=== PATIENT | female | born 1955 | race Caucasian/White ===

== ENCOUNTER → 2016-04-07 | Outpatient (CLI) | payer BC ==
[~2016-04-07] MED LIST: ACET-1138 PO; ACET-24 PO; AMT50 PO; ASPEC81 PO; AZITTAB PO; BUPR-79 PO; CITA20TA9 PO; CLB/200 PO; CLC100 PO; MCRK/10 PO; MCRK20 PO; METRO; METROGEL TOP; ONDA8TAB6 PO; OSTEO BIFLEX; OXYC-57 PO; OXYSR10 PO; PANT40TA PO; RXC5 PO; SENN-61 PO; TRAM-10 PO; TRIA75TA53 PO; [UNRECOGNIZED DRUG - CODE]; [UNRECOGNIZED DRUG - REMARK]
--- NOTE | 2016-04-07 13:33 | DIAGNOSTIC IMAGING REPORT ---
Limited three-phase bone scan BONE SCAN 3 PHASE LIMITED CLINICAL HISTORY: Knee pain TECHNIQUE: This study is acquired in multi phase fashion following the administration of 26.8 mCi technetium 99m MDP. COMPARISON STUDY: None FINDINGS: Vascular flow images demonstrate mild hyperemia to the region of the left knee. No significant increase in activity is seen to the right knee. Planar images show an increase in activity about the left knee and in particular the femoral prosthetic. IMPRESSION: 1. Moderate increase in vascular flow as well as activity to the left knee. 2. This is most prominent in the region of the patient's femoral prosthetic. 3. The possibility of developing loosening must be consideration Electronically signed by: Og Clark M.D. 04/07/2016 1:32 PM Dictated Date/Time: 04/07/2016 1:28 PM
== END | disposition home or self-care (01) ==
LOC: C.NUCL 08:50
PROVIDERS: ATTEND Orthopaedic Surgery
DX: M25.561 Pain in right knee (principal); R93.7 Abnormal findings on diagnostic imaging of other parts of musculoskeletal system

== ENCOUNTER → 2016-05-05 | Outpatient (CLI) | payer BC ==
[~2016-05-05] VITALS: Ht 185.4 cm; Wt 120.1 kg
[2016-05-05 08:52] VITALS: Ht 185.4 cm; Wt 120.1 kg
--- NOTE | 2016-05-05 09:23 | PAT Medication Instructions ---
Service Date May 05, 2016. Current Home Medication List Amitriptyline Hcl (Elavil), 50 MG PO HS Bupropion (Wellbutrin Sr), 150 MG PO HS Celecoxib (CeleBREX), 200 MG PO QAM Citalopram Hydrobromide (Celexa), Unknown Dose PO HS Pantoprazole (Protonix), 40 MG PO QAM Tramadol (Ultram), 1-2 TAB PO Q6 PRN for Pain Triamterene/Hctz (Maxzide 75MG/50MG), 1 TAB PO QAM [Metrogel], 1 DOSE TOP UD PRN for FACE Medication Instructions For Your Scheduled Surgery Celecoxib (CeleBREX), 200 MG PO QAM (per surgeon for instructions) - Hold the following medications 24 hours prior to surgery: [Metrogel], 1 DOSE TOP UD PRN for FACE - Hold the following medications the morning of surgery: Triamterene/Hctz (Maxzide 75MG/50MG), 1 TAB PO QAM - Take the following medications the morning of surgery with a sip of water: Pantoprazole (Protonix), 40 MG PO QAM Tramadol (Ultram), 1-2 TAB PO Q6 PRN for Pain (okay to take up to 4 hours prior to surgery if needed) - Take the following medications as scheduled the night before surgery: Citalopram Hydrobromide (Celexa), Unknown Dose PO HS Amitriptyline Hcl (Elavil), 50 MG PO HS Bupropion (Wellbutrin Sr), 150 MG PO HS If you have any questions please call us at [phone] (Carolann Ascencio PA-C) or [phone] or [phone]
[2016-05-05 09:50] LABS: BASO % 0.1 %; BASO ABS # 0.01 K/uL (0-0.2); COMPLETE YES; EOS % 0.9 %; HEMATOCRIT 38.5 % (37-47); IG% 0.3 %; LYMPH % 18.2 %; LYMPH ABS # 2.03 K/uL (1.2-3.4); MEAN CORPUSCULAR HEMOGLOBIN 30.1 pg (25-34); MEAN CORPUSCULAR HGB CONC 33.5 g/dl (32-36); MEAN PLATELET VOLUME 8.8 fL (7.4-10.4); MONO % 9.1 %; NEUT % 71.4 %; PLATELET COUNT 413 K/uL (130-400); RED BLOOD COUNT 4.28 M/uL (4.2-5.4); WHITE BLOOD COUNT 11.15 K/uL (4.8-10.8)
[2016-05-05 09:59] LABS: PARTIAL THROMBOPLASTIN RATIO 1.1; PROTHROMBIN TIME (PATIENT) 11.2 SECONDS (9.0-12.0)
[2016-05-05 10:00] LABS: URINE APPEARANCE CLEAR (CLEAR); URINE BILIRUBIN NEG (NEG); URINE COLOR YELLOW; URINE EPITHELIAL CELL AUTO >30 /lpf (0-5); URINE NITRITE NEG (NEG); URINE PH 6.5 (4.5-7.5); URINE SPECIFIC GRAVITY 1.015 (1.000-1.030); UROBILINOGEN NEG (NEG); ZZUR CULT IF INDIC CLEAN CATCH NO
[2016-05-05 10:05] LABS: MANUAL MICROSCOPIC REQUIRED? NO; REVIEW REQ? NO
--- NOTE | 2016-05-05 10:06 | DIAGNOSTIC IMAGING REPORT ---
CHEST PREADMISSION(PA/LAT) CLINICAL HISTORY: Preoperative chest COMPARISON STUDY: No previous studies for comparison. FINDINGS: The cardiac and mediastinal contours are normal. There is no evidence of focal pulmonary consolidation. There is no evidence of failure. No pleural effusions are visualized.[ IMPRESSION: No active disease in the chest. Electronically signed by: Jesus Ruby M.D. 05/05/2016 10:05 AM Dictated Date/Time: 05/05/2016 10:05 AM
[2016-05-05 10:07] LABS: ESTIMATED AVERAGE GLUCOSE 137 mg/dl; HA1C FLAG Normal (Normal)
[2016-05-05 10:14] LABS: BUN/CREATININE RATIO 13.5 (10-20); CALCIUM 9.4 mg/dl (8.5-10.1); CREATININE 1.8 mg/dl (0.60-1.20); POTASSIUM 3.2 mmol/L (3.5-5.1)
== END | disposition home or self-care (01) ==
LOC: C.LAB 08:00 → EDSTATUS 05-31 10:30
PROVIDERS: ATTEND Orthopaedic Surgery
DX: Z01.810 Encounter for preprocedural cardiovascular examination (principal); Z01.811 Encounter for preprocedural respiratory examination; Z01.812 Encounter for preprocedural laboratory examination

== ENCOUNTER → 2016-07-06 | Outpatient (CLI) | payer BC ==
[~2016-07-06] MED LIST changes: -AZITTAB PO; -METRO; -OSTEO BIFLEX; -[UNRECOGNIZED DRUG - CODE]
[2016-07-06 15:49] LABS: PARTIAL THROMBOPLASTIN RATIO 1.2; PROTHROMBIN TIME (PATIENT) 10.9 SECONDS (9.0-12.0)
[2016-07-06 16:05] LABS: BLOOD UREA NITROGEN 15 mg/dl (7-18)
[2016-07-06 17:05] LABS: URINE APPEARANCE TURBID (CLEAR); URINE BILIRUBIN NEG (NEG); URINE COLOR YELLOW; URINE EPITHELIAL CELL AUTO >30 /lpf (0-5); URINE NITRITE NEG (NEG); URINE SPECIFIC GRAVITY 1.018 (1.000-1.030); UROBILINOGEN NEG (NEG)
[2016-07-06 17:09] LABS: MANUAL MICROSCOPIC REQUIRED? NO; REVIEW REQ? NO
[2016-07-07 06:19] LABS: ESTIMATED AVERAGE GLUCOSE 126 mg/dl; HA1C FLAG Normal (Normal)
== END | disposition home or self-care (01) ==
LOC: C.LAB 15:07
PROVIDERS: ATTEND Orthopaedic Surgery
DX: M17.10 Unilateral primary osteoarthritis, unspecified knee (principal)

== ENCOUNTER 2016-07-13 10:41 | Inpatient (IN) | payer BC ==
--- NOTE | 2016-07-08 19:06 | HISTORY & PHYSICAL EXAMINATION ---
DATE OF ADMISSION: 07/13/2016 PROCEDURE: Left knee arthrotomy, possible poly exchange versus antibiotic spacer. HISTORY OF PRESENT ILLNESS: Geraldine is a pleasant 61-year-old female who presented for preop evaluation prior to above-mentioned procedure. The patient initially had bilateral knee replacements performed in 04/16/2007 and had an uneventful postoperative course. She followed up earlier this year after having increased pain and swelling in her knee without any known injuries or trauma. Of note, she did develop an infection in her right foot third toe, which has been treated by Dr. Long. At this point in time, Dr. Long did perform a right third toe partial amputation as well as manipulation under anesthesia of her other toes. The infection is now cleared, she underwent Synovasure testing of her left knee which showed positive alpha defensins, the total nucleated cell count was 68,563, and neutrophils were 94.9. She also underwent a bone scan which showed moderate increased vascular flow as well activity to the left knee, this is most prominent in the region of the patient's femoral prosthetic, the possibility of developing loosening is to be considered. At this point in time, after discussing further care, will proceed with a left knee arthrotomy, possible poly exchange, possible antibiotic spacer. PAST MEDICAL HISTORY: 1. Hypertension. 2. Sleep apnea. 3. Anxiety. 4. Acid reflux. 5. Obesity. ALLERGIES: 1. LATEX CAUSES A SKIN RASH. 2. SULFA CAUSES A RASH. PAST SURGICAL HISTORY: 1. Bilateral knee replacements, as mentioned above. 2. Appendectomy. 3. Cholecystectomy. 4. Hysterectomy. 5. Previous knee arthroscopies. 6. Open reduction internal fixation, right wrist. 7. Right foot third toe partial amputation. MEDICATIONS: 1. Amitriptyline 50 mg 1 tablet at bedtime. 2. Wellbutrin 150 mg daily. 3. Protonix 40 mg daily. 4. MetroGel 1%. 5. Celexa 20 mg daily. 6. Aspirin 81 mg daily. FAMILY HISTORY: Noncontributory. REVIEW OF SYSTEMS: Otherwise negative. Please see HPI for pertinent positives. PHYSICAL EXAMINATION: GENERAL: Sona 61-year-old female in no acute distress, alert and oriented x3. She weighs 258 pounds, her BMI is 34. HEENT: Normocephalic, atraumatic. CARDIAC: Regular rate and rhythm. No murmurs or gallops appreciated. Resting pulse 80 beats per minute. LUNGS: Clear to auscultation without rales or wheeze bilaterally. ABDOMEN: Soft, nontender. Bowel sounds present. EXTREMITIES: Left lower extremity is neurovascularly intact. Calves are soft and nontender. DP pulse +2. Has well-healed surgical incision. She has mild effusion noted. No erythema or warmth. She has diffuse tenderness to the knee which is greatest over the medial compartment. Range of motion is 0/3/120. IMAGING DATA: Plain film x-rays of her left knee shows status post left total knee replacement, mild lateral patellar tilt. Otherwise, no obvious loosening or acute bony pathology on plain films. Bone scan from 04/07/2016 showing moderate increased vascular flow to the left knee, most prominent around the femoral prosthetic. Synovasure results as mentioned in the HPI. LABORATORY DATA: Her white cell count was 11.15. Hemoglobin A1c was 6.4. Sed rate 80. IMPRESSION: 1. Painful left total knee replacement with possible loosening of femoral component, possibility of infection. 2. Past medical history as outlined above. PLAN: Further care discussed with the Geraldine, now the infection is cleared in her foot and is now status post partial amputation, will proceed with left knee arthrotomy, possible poly exchange versus revision versus antibiotic spacer, pending intraoperative findings. Will likely be discharged home with home health therapy, may also require IV antibiotics pending findings. The patient understands all the risks and benefits of the procedure and would like to proceed, as mentioned.
[~2016-07-13] VITALS: Ht 185.4 cm; Wt 115.0 kg
[2016-07-13] VITALS (10 sets, daily range): BP systolic 138–171; BP diastolic 77–97; PULSE 75–93; TEMP 36.3–37.2; O2SAT 93–100; Ht 185.4 cm; Wt 115.0 kg
--- NOTE | 2016-07-13 09:47 | History & Physical Bridge Note ---
H&P Re-Evaluation Bridge Note: I have examined the patient, reviewed the History & Physical and in the interval since the performance of the History & Physical I have noted the following changes of clinical significance: No changes noted
[~2016-07-13 10:41] MED LIST changes: -ACET-1138 PO; -ACET-24 PO; -ASPEC81 PO; +BUPIVACAINE 0.25% 30 ML VIAL ONE; +BUPIVACAINE 0.5 % 5 MG/1 ML PF 10ML VIAL ONE; +CEFAZOLIN 3000 MG/65 ML D5W 65 ML IV SCH; -CLC100 PO; +LACTATED RINGER'S 1000ML 1,000 ML IV SCH; -MCRK/10 PO; -MCRK20 PO; +MIDAZOLAM HCL 1 MG/ML 2ML VIAL ONE; -ONDA8TAB6 PO; -OXYC-57 PO; -OXYSR10 PO; +PATIENT'S HEIGHT AND/OR WEIGHT NEEDED SCH; -RXC5 PO; -SENN-61 PO; -[UNRECOGNIZED DRUG - REMARK]
[2016-07-13] MEDS ORDERED: OXYC-57 PO (11:22)
[2016-07-13] MEDS ORDERED: SENN-61 PO (11:22)
[2016-07-13] MEDS ORDERED: LACTATED RINGER'S 1000ML 1,000 ML IV PRN (11:44)
[2016-07-13] MEDS ORDERED: ONDANSETRON INJ 2 MG/ML 2 ML VIAL IV PRN ×2 (11:45→14:15)
[2016-07-13] MEDS ORDERED: FENTANYL CITRATE INJ 50 MCG/1 ML 2 ML VIAL IV PRN (11:45)
[2016-07-13] MEDS ORDERED: ORTHO JOINT ANESTHETIC ONE (11:47)
[2016-07-13] MEDS ORDERED: POVIDONE-IODINE OP SOLN 30 ML BTL ONE (11:48)
[2016-07-13] MEDS ORDERED: BACITRACIN 50000 UNIT VIAL ONE ×3 (11:48→13:06)
[2016-07-13] MEDS ORDERED: VANCOMYCIN HCL 1000MG/20ML VIAL ONE (11:48)
[2016-07-13] MEDS ORDERED: PROPOFOL IV EMULSION 10 MG/ML 20 ML VIAL IV ONE ×3 (12:19→13:11)
[2016-07-13] MEDS ORDERED: LIDOCAINE HCL 2% 2 ML VIAL (20MG/ML) ONE (12:19)
[2016-07-13] MEDS ORDERED: SODIUM CHLORIDE 0.9% INJ 10 ML VIAL ONE (12:43)
[2016-07-13] MEDS ORDERED: KETAMINE HCL INJ 50 MG/ML 10 ML VIAL ONE (12:43)
--- NOTE | 2016-07-13 13:34 | [facility] Post Operative Brief Note ---
Immediate Operative Summary Operative Date July 13, 2016. Pre-Operative Diagnosis Infected Left Knee Post-Operative Diagnosis Infected Left Knee Procedure(s) Performed Removal of Hardware Left Knee and Replacement with Articulated Antibiotic Spacer Left Knee Surgeon Dr. Austin Yi Art Editor Surgeon(s) Og Reed PA-c Estimated Blood Loss 10 ml Findings infected loose tka lt knee intra op frozen section greater than 15 wbc per hpf Specimens Permanent Specimen A: Explanted Hardware Left Knee Microbiology #1 Left knee fluid, Stat gram stain, routine culture and senitivity, anaerobic and aerobic Frozen section #1 femur left knee bone cement interface WBC per high power field #2 Left tibia bone cement interface WBC per high power field Frozen sent at 1255, and Dr. Cantor returned call at 1324 Dr. Yi given results with no new orders Complication(s) None Disposition Recovery Room / PACU
--- NOTE | 2016-07-13 13:58 | OPERATIVE REPORT ---
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 PROCEDURE: Arthrotomy with removal of infected components, debridement, lavage. SURGEON: Dr. Yi. FINDINGS: Intraoperative frozen section revealed greater than 15 neutrophils per high power field on the tibial femoral specimens at the interface of the bone and the implant. There was also intraoperative cultures were taken as well as stat Gram stain. Stat gram stain revealed there to be no evidence of organisms but was clearly consistent with a loosened component. The patellar component was free floating within the knee joint. The femoral component was loosened and essentially fell off. The tibial component was also loose. The patient had the knee implant placed in 2007, was uncomplicated until February when she developed an infection in her right foot, subsequently developed pain in her left knee and presented with a hot swollen left knee. An office aspiration with Synovasure revealed there to be evidence of fluid consistent with infection. The patient was scheduled for surgical debridement, lavage, removal of implants. Bone scan was also consistent with that of a hot femoral component with increased uptake around the femoral component primarily. OPERATION AND FINDINGS: PROCEDURE: After proper prepping and draping of the left lower extremity, an anterior incision made over the region of the left anterior knee. A medial parapatellar incision was made. The patellar component was noted to be free floating within the joint, it was removed. The femoral component was loose, it was removed. The tibial poly was removed. The tibial component took minimal effort for removal. There was clear evidence of gross visual signs of infection with hypertrophic synovium and synovectomy was performed. The wound was also cleaned with a Versajet as well as 9 liters of sterile saline with bacitracin. Having performed a thorough irrigation and debridement lavage of all components after using Versajet on soft tissue and synovium an articulated antibiotic spacer was placed. Three packets of cement, 3 grams of vancomycin were added per packet. The femoral articulated component was loosely cemented as was a patellar component with the pegs removed was cemented and a tibial 9 mm tibial tray was also placed with antibiotic spacer into the proximal tibia. The wound was irrigated again with 3 liters of bacitracin impregnated sterile saline solution. After thorough irrigation and debridement lavage the medial parapatellar retinaculum was closed with #1 Vicryl, subQ was closed with 2-0 Vicryl, skin was closed with skin clips. A medium bore Hemovac was placed in the deep wound. The patient was taken to recovery room in stable condition. Estimated blood loss 10 mL. Tourniquet time 1 hour and 15 minutes. Complications none. I attest to the content of the Intraoperative Record and any orders documented therein. Any exceptio ns are noted below.
[2016-07-13] MEDS ORDERED: ZOLPIDEM TARTRATE 5 MG TAB PO PRN (14:15)
[2016-07-13] MEDS ORDERED: MAGNESIUM HYDROXIDE SUSP 30 ML UDC PO PRN (14:15)
[2016-07-13] MEDS ORDERED: VANCOMYCIN INJ 1,000 MG in SODIUM CHLORIDE 0.9% 250ML 250 ML IV SCH ×2 (14:15→21:00)
[2016-07-13] MEDS ORDERED: MoRPHine SULFATE 2 MG/ML CARP IV PRN (14:15)
[2016-07-13] MEDS ORDERED: BISACODYL 10 MG SUPP PR PRN (14:15)
[2016-07-13] MEDS ORDERED: SOD PHOSPHATE/SOD BIPHOSPHATE ENEMA 132 ML BTL PR PRN (14:15)
--- NOTE | 2016-07-13 14:47 | DIAGNOSTIC IMAGING REPORT ---
TWO VIEWS LEFT KNEE CLINICAL HISTORY: Postoperative examination. Left knee infection. FINDINGS: AP and crosstable lateral portable views of the left knee are obtained. No prior studies are available for comparison at the time of dictation. The skeletal structures are osteopenic. The femoral component of the left knee arthroplasty is in near-anatomic alignment. The tibial component appears to have been removed. There has been undersurface remodeling of the patella. No acute fracture is seen. There are expected postoperative changes around the knee including skin clips, a surgical drain, soft tissue edema, and subcutaneous gas. IMPRESSION: Postoperative findings as above. The tibial component of the arthroplasty has likely been removed. No acute fracture is seen. Clinical correlation will be required. Electronically signed by: Larry Wang M.D. 07/13/2016 2:46 PM Dictated Date/Time: 07/13/2016 2:44 PM
--- NOTE | 2016-07-13 14:51 | Anesthesiology Progress Note ---
Anesthesia Post Op Note Date & Time July 13, 2016 at 14:51 Vital Signs Pain Intensity: 0 Vital Signs Past 12 Hours Date Time Temp Pulse Resp B/P Pulse Ox O2 Delivery O2 Flow Rate FiO2 07/13/16 14:34 36.8 07/13/16 14:32 134/77 07/13/16 14:30 72 14 94 07/13/16 14:30 74 14 07/13/16 14:27 160/63 07/13/16 14:25 73 16 07/13/16 14:25 73 16 97 07/13/16 14:22 149/71 07/13/16 14:20 73 16 156/67 98 07/13/16 14:20 73 07/13/16 14:05 37.1 84 14 147/84 99 Nasal Cannula 3 07/13/16 11:23 36.9 93 18 141/97 95 Room Air Notes Mental Status: alert / awake / arousable, participated in evaluation Pt Amnestic to Procedure: Yes Nausea / Vomiting: adequately controlled Pain: adequately controlled Airway Patency, RR, SpO2: stable & adequate BP & HR: stable & adequate Hydration State: stable & adequate Neuraxial Anesthesia: was administered, sensory block is resolving Anesthetic Complications: no major complications apparent
[2016-07-13] MEDS ORDERED: MoRPHine SULFATE 10 MG/ML CARP/VIAL IV PRN (16:00)
[2016-07-13] MEDS ORDERED: MoRPHine SULFATE 4 MG/ML 1 ML CARP\\VIAL IV PRN (16:00)
[2016-07-13] MEDS ORDERED: VANCOMYCIN INJ 2,750 MG in SODIUM CHLORIDE 0.9% 500ML 500 ML IV ONE (16:30)
--- NOTE | 2016-07-13 16:34 | Medical Consult ---
Consultation Date of Consultation: July 13, 2016. Attending Physician: Austin Yi D.O. Reason for Consultation: infected left TKA History of Present Illness 61-year-old female with history of left TKA in 2007, who did well until earlier this year, when while being treated for an infection of her right 3rd toe requiring partial amputation, she noted progressive worsening of aching pain in her left knee long with swelling. She eventually had aspiration of the joint with fluid showing evidence of infection. She has now been admitted to the hospital and undergone removal of the prosthesis and placement of an antibiotic spacer. Gram stain of the fluid showed only polys, no organisms, cultures are pending. She has been started empirically on IV vancomycin. She denies any significant fever or chills. She is tolerating her antibiotic thus far. Past Medical/Surgical History Medical Problems: (1) Infection of total knee replacement PAST MEDICAL HISTORY: 1. Hypertension. 2. Sleep apnea. 3. Anxiety. 4. Acid reflux. 5. Obesity. PAST SURGICAL HISTORY: Knee replacement, cholecystectomy, hysterectomy, wrist surgery, toe amputation Family History Noncontributory Social History Smoking Status: Never Smoker Allergies Coded Allergies: Latex1 -Allergic Contact Dermititis (Verified Allergy, Mild, RASH, 07/13/16 ) Sulfa Antibiotics (Verified Allergy, Mild, rash, 07/13/16) Bacitracin (Verified Allergy, Unknown, per PCP note , 07/13/16) Flu Virus Vaccine (Verified Allergy, Unknown, per PCP note , 07/13/16) Metronidazole (Verified Allergy, Unknown, per PCP note , 07/13/16) Minocycline (Verified Allergy, Unknown, per PCP note , 07/13/16) Neomycin (Verified Allergy, Unknown, per PCP note , 07/13/16) Polymyxin B (Verified Allergy, Unknown, per PCP note , 07/13/16) Terconazole (Verified Allergy, Unknown, per PCP note , 07/13/16) Current Inpatient Medications Current Inpatient Medications Medications (Trade) Dose Ordered Sig/Fredrick Route Start Time Stop Time Status Last Admin Dose Admin Lactated Ringer's 1,000 ml @ 15 mls/hr Q24H IV 07/13/16 06:00 07/14/16 05:59 07/13/16 11:34 15 MLS/HR Cefazolin Sodium (Ancef 3000 Mg/ 65 ml D5W) 65 ml @ 100 mls/hr PREOP IV 07/13/16 06:00 07/13/16 18:00 07/13/16 12:18 100 MLS/HR Fentanyl Citrate (Fentanyl Inj) 25 mcg Q5M PRN IV 07/13/16 11:45 07/13/16 16:45 Ondansetron HCl 4 mg 4 mg ONE PRN IV 07/13/16 11:45 07/13/16 16:45 Lactated Ringer's 1,000 ml @ 150 mls/hr Q6H40M PRN IV 07/13/16 11:44 07/13/16 16:45 Potassium Chloride/Dextrose/ Sod Cl (D5W And 1/2nss + 20meq KCl) 1,000 ml @ 100 mls/hr Q10H IV 07/13/16 16:00 07/14/16 14:08 Celecoxib (CeleBREX CAP) 200 mg BID PO 07/13/16 21:00 08/12/16 20:59 Oxycodone HCl (Roxicodone Immediate Rel Tab) 1 TABLET FOR PAIN RATING... Q4H PRN PO 07/13/16 14:15 07/27/16 14:14 Oxycodone HCl (Oxycontin Tab) 10 mg Q12 PO 07/13/16 21:00 07/27/16 20:59 Acetaminophen (Tylenol Tab) 1,000 mg Q8H PO 07/13/16 22:00 08/12/16 21:59 Magnesium Hydroxide (Milk Of Magnesia Susp) 30 ml Q6H PRN PO 07/13/16 14:15 08/12/16 14:14 Bisacodyl (Dulcolax Supp) 10 mg DAILY PRN RI 07/13/16 14:15 08/12/16 14:14 Sodium Biphosphate/ Sodium Phosphate (Fleet Enema) 132 ml DAILY PRN RI 07/13/16 14:15 08/12/16 14:14 Senna (Senokot Tab) 17.2 mg HS PO 07/13/16 21:00 08/12/16 20:59 Docusate Sodium (coLACE CAP) 100 mg BID PO 07/13/16 21:00 08/12/16 20:59 Diphenhydramine HCl (Benadryl Cap) 25 mg Q8H PRN PO 07/13/16 14:15 08/12/16 14:14 Zolpidem Tartrate (Ambien Tab) 5 mg HSZ PRN PO 07/13/16 14:15 08/12/16 14:14 Multivitamins (Multivitamin Tab) 1 tab QAM PO 07/14/16 09:00 08/13/16 08:59 Ondansetron HCl (Zofran Inj) 4 mg Q6H PRN IV 07/13/16 14:15 08/12/16 14:14 Aspirin (Ecotrin Tab) 81 mg BID PO 07/13/16 21:00 08/12/16 20:59 Amitriptyline HCl (Elavil Tab) 50 mg HS PO 07/13/16 21:00 08/12/16 20:59 Bupropion HCl (Wellbutrin-Sr Tab) 150 mg HS PO 07/13/16 21:00 08/12/16 20:59 Metronidazole HCl (Metrogel Topical Gel) 1 appln UD TOP 07/13/16 21:00 07/23/16 20:59 Morphine Sulfate 2 mg 2 mg Q4HWA PRN IV 07/13/16 14:15 07/27/16 14:14 Vancomycin HCl/ Sodium Chloride (Vancomycin Inj/ Nss 250ml) 270 ml @ 125 mls/hr Q12 IV 07/13/16 21:00 08/24/16 20:59 UNV Morphine Sulfate (MoRPHine SULFATE INJ) 4 mg Q4HWA PRN IV 07/13/16 16:00 07/27/16 15:59 Morphine Sulfate 6 mg 6 mg Q4HWA PRN IV 07/13/16 16:00 07/27/16 15:59 Vancomycin HCl/ Sodium Chloride (Vancomycin Inj/ Nss 500ml) 555 ml @ 200 mls/hr TODAY@1630 ONCE IV 07/13/16 16:30 07/13/16 19:16 Review of Systems All systems were reviewed and are negative except as per HPI Physical Exam Date Time Temp Pulse Resp B/P Pulse Ox O2 Delivery O2 Flow Rate FiO2 07/13/16 16:24 36.8 81 17 146/86 100 Nasal Cannula 2.0 07/13/16 15:54 36.8 75 16 158/77 99 Nasal Cannula 2.0 07/13/16 15:48 99 Nasal Cannula 2.0 07/13/16 15:28 99 Nasal Cannula 2.0 07/13/16 15:24 36.8 86 15 157/86 99 2.0 07/13/16 15:17 149/70 07/13/16 15:15 77 14 97 07/13/16 15:15 76 14 07/13/16 15:12 154/80 07/13/16 15:10 75 14 07/13/16 15:10 75 14 98 07/13/16 15:07 155/74 07/13/16 15:05 73 14 96 07/13/16 15:05 73 14 07/13/16 15:02 143/80 07/13/16 15:00 73 16 98 07/13/16 15:00 74 16 07/13/16 14:57 156/69 07/13/16 14:55 73 21 07/13/16 14:55 73 21 98 07/13/16 14:52 161/68 07/13/16 14:50 73 22 07/13/16 14:50 74 22 96 07/13/16 14:47 143/68 07/13/16 14:45 73 19 98 07/13/16 14:45 74 19 07/13/16 14:42 158/84 07/13/16 14:40 74 21 97 07/13/16 14:40 74 21 07/13/16 14:37 150/72 07/13/16 14:35 74 18 07/13/16 14:35 74 18 99 07/13/16 14:34 36.8 07/13/16 14:32 134/77 07/13/16 14:30 72 14 94 07/13/16 14:30 74 14 07/13/16 14:27 160/63 07/13/16 14:25 73 16 07/13/16 14:25 73 16 97 07/13/16 14:22 149/71 07/13/16 14:20 73 16 156/67 98 07/13/16 14:20 73 07/13/16 14:05 37.1 84 14 147/84 99 Nasal Cannula 3 07/13/16 11:23 36.9 93 18 141/97 95 Room Air General Appearance: WD/WN, no apparent distress Head: normocephalic Eyes: normal inspection, EOMI, sclerae normal ENT: normal ENT inspection, hearing grossly normal, pharynx normal Neck: supple, no adenopathy, thyroid normal, trachea midline Respiratory/Chest: chest non-tender, lungs clear, normal breath sounds, no respiratory distress Cardiovascular: regular rate, rhythm, no gallop, no murmur Abdomen/GI: normal bowel sounds, non tender, soft, no organomegaly Back: normal inspection, no CVA tenderness Extremities/Musculoskelatal: no calf tenderness, normal capillary refill Neurologic/Psych: alert, oriented x 3 Skin: normal color, warm/dry, no rash, + pertinent finding ( surgical dressing intact left knee) Lymphatic: no adenopathy Laboratory Results Date/Time Source Procedure Growth Status 07/13/16 12:30 Joint Fluid/Space (Synovial) Knee Left Gram Stain - Final Resulted 07/13/16 12:30 Joint Fluid/Space (Synovial) Knee Left Bacterial Culture Pending Resulted Last 24 Hours Test 07/13/16 11:08 07/13/16 16:15 Assessment & Plan 61 yo female with 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 Vancomycin appropriate pending final culture results. Will likely need PICC and prolonged IV antibiotic. Will adjust Rx once pathogen identified.
[2016-07-13] MEDS: D5W AND 1/2NSS + 20MEQ KCL 1,000 ML IV SCH (16:48)
[2016-07-13] MEDS ORDERED: VANCOMYCIN CONSULT ACTIVE PRN (17:00)
[2016-07-13 17:07] LABS: CREATININE 1.2 mg/dl (0.60-1.20)
[2016-07-13] MEDS: OXYCODONE HCL IR 5 MG TAB (IMMEDIATE RELEASE) PO PRN ×2 (18:33→23:00)
--- NOTE | 2016-07-13 19:46 | Pharmacy Progress Note ---
Pharmacy Abx Initial Consult Date of Service July 13, 2016. Pharmacy Dosing Scope Date of Consult: 07/13/16 Consultation requested by: Og Reed PA-c Pharmacy is consulted to initiate Vancomycin IV dosing therapy, order appropriate labs and adjust drug dose/frequency. Subjective The patient is a 61 year old female admitted on July 13, 2016 at 11:30. Objective Height (Feet): 6 Height (Inches): 1 Weight (Kilograms): 115.000 Vital Signs (Past 12Hrs) Vital Signs Past 12 Hours Date Time Temp Pulse Resp B/P Pulse Ox O2 Delivery O2 Flow Rate FiO2 07/13/16 19:27 36.8 87 16 152/83 96 Nasal Cannula 2.0 07/13/16 18:26 36.3 84 17 171/84 99 Nasal Cannula 2.0 07/13/16 17:27 36.6 79 16 138/79 100 Nasal Cannula 2.0 07/13/16 16:24 36.8 81 17 146/86 100 Nasal Cannula 2.0 07/13/16 15:54 36.8 75 16 158/77 99 Nasal Cannula 2.0 07/13/16 15:48 99 Nasal Cannula 2.0 07/13/16 15:28 99 Nasal Cannula 2.0 07/13/16 15:24 36.8 86 15 157/86 99 2.0 07/13/16 15:17 149/70 07/13/16 15:15 77 14 97 07/13/16 15:15 76 14 07/13/16 15:12 154/80 07/13/16 15:10 75 14 07/13/16 15:10 75 14 98 07/13/16 15:07 155/74 07/13/16 15:05 73 14 96 07/13/16 15:05 73 14 07/13/16 15:02 143/80 07/13/16 15:00 73 16 98 07/13/16 15:00 74 16 07/13/16 14:57 156/69 07/13/16 14:55 73 21 07/13/16 14:55 73 21 98 07/13/16 14:52 161/68 07/13/16 14:50 73 22 07/13/16 14:50 74 22 96 07/13/16 14:47 143/68 07/13/16 14:45 73 19 98 07/13/16 14:45 74 19 07/13/16 14:42 158/84 07/13/16 14:40 74 21 97 07/13/16 14:40 74 21 07/13/16 14:37 150/72 07/13/16 14:35 74 18 07/13/16 14:35 74 18 99 07/13/16 14:34 36.8 07/13/16 14:32 134/77 07/13/16 14:30 72 14 94 07/13/16 14:30 74 14 07/13/16 14:27 160/63 07/13/16 14:25 73 16 07/13/16 14:25 73 16 97 07/13/16 14:22 149/71 07/13/16 14:20 73 16 156/67 98 07/13/16 14:20 73 07/13/16 14:05 37.1 84 14 147/84 99 Nasal Cannula 3 07/13/16 11:23 36.9 93 18 141/97 95 Room Air Lab Results (24Hrs) Test 07/13/16 11:08 07/13/16 16:31 Hepatitis C Antibody Screen NEG (NEG) Creatinine 1.20 mg/dl (0.60-1.20) Est Creatinine Clear Calc Drug Dose 69.1 ml/min Estimated GFR () 55.7 Estimated GFR (Non- 48.1 Micro Results Date/Time Source Procedure Growth Status 07/13/16 12:30 Joint Fluid/Space (Synovial) Knee Left Gram Stain - Final Resulted 07/13/16 12:30 Joint Fluid/Space (Synovial) Knee Left Bacterial Culture Pending Resulted Assessment & Plan Assessment 61 year old female with probable infected left TKA. Pt POD#0 s/p debridement, removal of prosthesis, and placement of abx spacer. Renal function uncertain, Scr has fluctuated 1.3- 1.8mg/dl over the past 6 months. Pt may be at risk for vanco accumulation d/t large body weight, but BMI is not > 35. Plan Vancomycin for treatment of infected left TKA {bone/joint infection} Vancomycin IV * Loading dose: 2,750 mg (24 mg/kg) * Maintenance dose: 1,700 mg IV (15 mg/kg) every 16 hours * Goal trough level for bone/joint : 15 to 20 mcg/mL * Trough level ordered for 07/15/16 - @ 1630 * A less than traditional dose has been selected due to likelihood of drug accumulation in obese patient/patient with h/o CKD. Pharmacy will continue to follow and will adjust dose/frequency as necessary. Thank you.
[2016-07-13] MEDS: ASPIRIN 81 MG ECTAB PO SCH (20:45)
[2016-07-13] MEDS: BuPROPion SR 150 MG TABCR PO SCH (20:45)
[2016-07-13] MEDS: DOCUSATE SODIUM 100 MG CAP PO SCH (20:45)
[2016-07-13] MEDS: OXYCODONE HCL 10 MG TABCR (OXYCONTIN) PO SCH (20:45)
[2016-07-13] MEDS: AMITRIPTYLINE HCL 50 MG TAB PO SCH (20:45)
[2016-07-13] MEDS: CeleBREX 200 MG CAP PO SCH (20:46)
[2016-07-13] MEDS: SENNA 8.6 MG TAB PO SCH (20:46)
[2016-07-13] MEDS ORDERED: METRONIDAZOLE 0.75% TOPICAL GEL 45 GM TUBE TOP SCH (21:00)
[2016-07-13] MEDS: ACETAMINOPHEN 500 MG TAB PO SCH (21:43)
[2016-07-14] MEDS: D5W AND 1/2NSS + 20MEQ KCL 1,000 ML IV SCH ×2 (01:17→13:06)
[2016-07-14 03:55] VITALS: BP 132/77; PULSE 76; TEMP 36.5; O2SAT 98
[2016-07-14] MEDS: ACETAMINOPHEN 500 MG TAB PO SCH ×3 (05:56→21:26)
[2016-07-14] MEDS: OXYCODONE HCL IR 5 MG TAB (IMMEDIATE RELEASE) PO PRN ×4 (05:57→21:27)
[2016-07-14 06:29] LABS: HEMATOCRIT 34.4 % (37-47); MEAN CELL VOLUME 89.4 fL (80-100); MEAN CORPUSCULAR HEMOGLOBIN 28.6 pg (25-34); MEAN PLATELET VOLUME 9.1 fL (7.4-10.4); PLATELET COUNT 298 K/uL (130-400); RED BLOOD COUNT 3.85 M/uL (4.2-5.4); WHITE BLOOD COUNT 7.06 K/uL (4.8-10.8)
[2016-07-14 06:37] LABS: PROTHROMBIN TIME (PATIENT) 11.1 SECONDS (9.0-12.0)
[2016-07-14 07:11] LABS: BUN/CREATININE RATIO 10.8 (10-20); CALCIUM 8.7 mg/dl (8.5-10.1); CREATININE 1.3 mg/dl (0.60-1.20); POTASSIUM 3.8 mmol/L (3.5-5.1)
[2016-07-14 07:30] VITALS: BP 131/82; PULSE 73; TEMP 36.5; O2SAT 98
--- NOTE | 2016-07-14 07:33 | Orthopedic Progress Note ---
Orthopedic Progress Note Date of Service Jul 14, 2016. Subjective Post OP Day: 1 (s/p removal tka prosthesis and placement antibiotic spacer) Reports: feeling well, pain controlled w PO medications, Denies: complaints, chest pain, SOB, nausea / vomiting, light headedness, calf pain Objective calves soft nontender, N/V intact, capillary refill less than 2 sec., dressing C /D/I, A&O x3, toes mobile, hemovac drainage (350cc/8 hours) Date Time Temp Pulse Resp B/P (MAP) Pulse Ox O2 Delivery O2 Flow Rate FiO2 07/14/16 03:55 36.5 76 16 132/77 (95) 98 Nasal Cannula 2.0 07/13/16 23:38 37.2 83 18 145/81 (102) 97 Nasal Cannula 2.0 07/13/16 19:27 36.8 87 16 152/83 (106) 96 Nasal Cannula 2.0 07/13/16 19:25 93 Nasal Cannula 2.0 07/13/16 18:26 36.3 84 17 171/84 (113) 99 Nasal Cannula 2.0 07/13/16 17:27 36.6 79 16 138/79 (98) 100 Nasal Cannula 2.0 07/13/16 16:24 36.8 81 17 146/86 (106) 100 Nasal Cannula 2.0 07/13/16 15:54 36.8 75 16 158/77 (104) 99 Nasal Cannula 2.0 07/13/16 15:48 99 Nasal Cannula 2.0 07/13/16 15:28 99 Nasal Cannula 2.0 07/13/16 15:24 36.8 86 15 157/86 (109) 99 2.0 07/13/16 15:17 149/70 07/13/16 15:15 77 14 97 07/13/16 15:15 76 14 07/13/16 15:12 154/80 07/13/16 15:10 75 14 07/13/16 15:10 75 14 98 07/13/16 15:07 155/74 07/13/16 15:05 73 14 96 07/13/16 15:05 73 14 07/13/16 15:02 143/80 07/13/16 15:00 73 16 98 07/13/16 15:00 74 16 07/13/16 14:57 156/69 07/13/16 14:55 73 21 07/13/16 14:55 73 21 98 07/13/16 14:52 161/68 07/13/16 14:50 73 22 07/13/16 14:50 74 22 96 07/13/16 14:47 143/68 07/13/16 14:45 73 19 98 07/13/16 14:45 74 19 07/13/16 14:42 158/84 07/13/16 14:40 74 21 97 07/13/16 14:40 74 21 07/13/16 14:37 150/72 07/13/16 14:35 74 18 07/13/16 14:35 74 18 99 07/13/16 14:34 36.8 07/13/16 14:32 134/77 07/13/16 14:30 72 14 94 07/13/16 14:30 74 14 07/13/16 14:27 160/63 07/13/16 14:25 73 16 07/13/16 14:25 73 16 97 07/13/16 14:22 149/71 07/13/16 14:20 73 16 156/67 98 07/13/16 14:20 73 07/13/16 14:05 37.1 84 14 147/84 99 Nasal Cannula 3 07/13/16 11:23 36.9 93 18 141/97 95 Room Air Laboratory Results 24 Hours: Test 07/14/16 05:39 Hematocrit 34.4 % Hemoglobin 11.0 g/dL Prothromb Time International Ratio 1.0 Prothrombin Time 11.1 SECONDS Assessment & Plan Assessment: POD #1 s/p Removal of Hardware Left Knee and Replacement with Articulated Antibiotic Spacer Left Knee -will need prolonged IV antibiotics and likely PICC, awaiting intra-op cultures, currently on Vancomycin pending results -appreciate Dr Degroot ID input -needs immobilizer while ambulating but may WBAT with brace on, may loosen in bed but no forced motion beyond 30 degrees -will leave hemovac in until tomorrow -prevena wound vac x 7 days -is s/p ORIF Right wrist fx by dr macdonald, may require platform walker, also s /p partial amputation right 3rd toe by dr macdonald Discharge Planning Discharge Planning: uncertain DVT Prophylaxis: TEDs, SCDs, ASA
[2016-07-14] MEDS: ASPIRIN 81 MG ECTAB PO SCH ×2 (08:38→21:25)
[2016-07-14] MEDS: DOCUSATE SODIUM 100 MG CAP PO SCH ×2 (08:38→21:25)
[2016-07-14] MEDS: MULTIVITAMIN TAB PO SCH (08:38)
[2016-07-14] MEDS: CeleBREX 200 MG CAP PO SCH ×2 (08:39→21:25)
[2016-07-14] MEDS: VANCOMYCIN INJ 1,700 MG in SODIUM CHLORIDE 0.9% 500ML 500 ML IV SCH (08:41)
[2016-07-14] MEDS: OXYCODONE HCL 10 MG TABCR (OXYCONTIN) PO SCH ×2 (08:41→21:26)
[2016-07-14 09:30] VITALS: O2SAT 98
--- NOTE | 2016-07-14 09:31 | Anesthesiology Progress Note ---
Anesthesia Post Op Note Date & Time Jul 14, 2016 at 09:29 Vital Signs Pain Intensity: 4.0 Vital Signs Past 12 Hours Date Time Temp Pulse Resp B/P (MAP) Pulse Ox O2 Delivery O2 Flow Rate FiO2 07/14/16 07:30 36.5 73 14 131/82 (98) 98 Room Air 07/14/16 03:55 36.5 76 16 132/77 (95) 98 Nasal Cannula 2.0 07/13/16 23:38 37.2 83 18 145/81 (102) 97 Nasal Cannula 2.0 Notes Mental Status: alert / awake / arousable, participated in evaluation Pt Amnestic to Procedure: Yes Nausea / Vomiting: adequately controlled Pain: adequately controlled Airway Patency, RR, SpO2: stable & adequate BP & HR: stable & adequate Hydration State: stable & adequate Neuraxial Anesthesia: was administered, sensory block resolved Anesthetic Complications: no major complications apparent
[2016-07-14 11:45] VITALS: BP 137/83; PULSE 74; TEMP 36.9; O2SAT 95
--- NOTE | 2016-07-14 13:52 | Infectious Disease Progress Nt ---
Progress Note Date of Service Jul 14, 2016. Subjective Pt evaluation today including: conversation w/ patient, physical exam, chart review, lab review, review of studies, conversation w/ [employer] consultant, review of inpatient medication list No new complaints today. Pain controlled. No fever. Tolerating Abx. Cultures negative to date. All Other Systems: Reviewed and Negative Medications Current Inpatient Medications Medications (Trade) Dose Ordered Sig/Fredrick Route Start Time Stop Time Status Last Admin Dose Admin Potassium Chloride/Dextrose/ Sod Cl 1,000 ml @ 100 mls/hr Q10H IV 07/13/16 16:00 07/14/16 14:08 07/14/16 13:06 100 MLS/HR Celecoxib (CeleBREX CAP) 200 mg BID PO 07/13/16 21:00 08/12/16 20:59 07/14/16 08:39 200 MG Oxycodone HCl (Roxicodone Immediate Rel Tab) 1 TABLET FOR PAIN RATING... Q4H PRN PO 07/13/16 14:15 07/27/16 14:14 07/14/16 10:12 10 MG Oxycodone HCl (Oxycontin Tab) 10 mg Q12 PO 07/13/16 21:00 07/27/16 20:59 07/14/16 08:41 10 MG Acetaminophen (Tylenol Tab) 1,000 mg Q8H PO 07/13/16 22:00 08/12/16 21:59 07/14/16 13:48 1,000 MG Magnesium Hydroxide (Milk Of Magnesia Susp) 30 ml Q6H PRN PO 07/13/16 14:15 08/12/16 14:14 Bisacodyl (Dulcolax Supp) 10 mg DAILY PRN CO 07/13/16 14:15 08/12/16 14:14 Sodium Biphosphate/ Sodium Phosphate (Fleet Enema) 132 ml DAILY PRN CO 07/13/16 14:15 08/12/16 14:14 Senna (Senokot Tab) 17.2 mg HS PO 07/13/16 21:00 08/12/16 20:59 07/13/16 20:46 17.2 MG Docusate Sodium (coLACE CAP) 100 mg BID PO 07/13/16 21:00 08/12/16 20:59 07/14/16 08:38 100 MG Diphenhydramine HCl (Benadryl Cap) 25 mg Q8H PRN PO 07/13/16 14:15 08/12/16 14:14 Zolpidem Tartrate (Ambien Tab) 5 mg HSZ PRN PO 07/13/16 14:15 08/12/16 14:14 Multivitamins (Multivitamin Tab) 1 tab QAM PO 07/14/16 09:00 08/13/16 08:59 07/14/16 08:38 1 TAB Ondansetron HCl (Zofran Inj) 4 mg Q6H PRN IV 07/13/16 14:15 08/12/16 14:14 Aspirin (Ecotrin Tab) 81 mg BID PO 07/13/16 21:00 08/12/16 20:59 07/14/16 08:38 81 MG Amitriptyline HCl (Elavil Tab) 50 mg HS PO 07/13/16 21:00 08/12/16 20:59 07/13/16 20:45 50 MG Bupropion HCl (Wellbutrin-Sr Tab) 150 mg HS PO 07/13/16 21:00 08/12/16 20:59 07/13/16 20:45 150 MG Metronidazole HCl (Metrogel Topical Gel) 1 appln UD TOP 07/13/16 21:00 07/23/16 20:59 Morphine Sulfate (MoRPHine SULFATE INJ) 2 mg Q4HWA PRN IV 07/13/16 14:15 07/27/16 14:14 07/13/16 17:23 2 MG Morphine Sulfate (MoRPHine SULFATE INJ) 4 mg Q4HWA PRN IV 07/13/16 16:00 07/27/16 15:59 07/13/16 18:07 4 MG Morphine Sulfate (MoRPHine SULFATE INJ) 6 mg Q4HWA PRN IV 07/13/16 16:00 07/27/16 15:59 Vancomycin HCl (Consult) 1 ea UD PRN N/A 07/13/16 17:00 08/12/16 16:59 Vancomycin HCl 1700 mg/Sodium Chloride 534 ml @ 200 mls/hr Q16H IV 07/14/16 09:00 08/25/16 08:59 07/14/16 08:41 200 MLS/HR Objective Vital Signs Date Time Temp Pulse Resp B/P (MAP) Pulse Ox O2 Delivery O2 Flow Rate FiO2 07/14/16 11:45 36.9 74 16 137/83 (101) 95 Room Air 07/14/16 09:30 98 Room Air 07/14/16 07:30 36.5 73 14 131/82 (98) 98 Room Air 07/14/16 07:20 Room Air 07/14/16 03:55 36.5 76 16 132/77 (95) 98 Nasal Cannula 2.0 07/13/16 23:38 37.2 83 18 145/81 (102) 97 Nasal Cannula 2.0 07/13/16 19:27 36.8 87 16 152/83 (106) 96 Nasal Cannula 2.0 07/13/16 19:25 93 Nasal Cannula 2.0 07/13/16 18:26 36.3 84 17 171/84 (113) 99 Nasal Cannula 2.0 07/13/16 17:27 36.6 79 16 138/79 (98) 100 Nasal Cannula 2.0 07/13/16 16:24 36.8 81 17 146/86 (106) 100 Nasal Cannula 2.0 07/13/16 15:54 36.8 75 16 158/77 (104) 99 Nasal Cannula 2.0 07/13/16 15:48 99 Nasal Cannula 2.0 07/13/16 15:28 99 Nasal Cannula 2.0 07/13/16 15:24 36.8 86 15 157/86 (109) 99 2.0 07/13/16 15:17 149/70 07/13/16 15:15 77 14 97 07/13/16 15:15 76 14 07/13/16 15:12 154/80 07/13/16 15:10 75 14 07/13/16 15:10 75 14 98 07/13/16 15:07 155/74 07/13/16 15:05 73 14 96 07/13/16 15:05 73 14 07/13/16 15:02 143/80 07/13/16 15:00 73 16 98 07/13/16 15:00 74 16 07/13/16 14:57 156/69 07/13/16 14:55 73 21 07/13/16 14:55 73 21 98 07/13/16 14:52 161/68 07/13/16 14:50 73 22 07/13/16 14:50 74 22 96 07/13/16 14:47 143/68 07/13/16 14:45 73 19 98 07/13/16 14:45 74 19 07/13/16 14:42 158/84 07/13/16 14:40 74 21 97 07/13/16 14:40 74 21 07/13/16 14:37 150/72 07/13/16 14:35 74 18 07/13/16 14:35 74 18 99 07/13/16 14:34 36.8 07/13/16 14:32 134/77 07/13/16 14:30 72 14 94 07/13/16 14:30 74 14 07/13/16 14:27 160/63 07/13/16 14:25 73 16 07/13/16 14:25 73 16 97 07/13/16 14:22 149/71 07/13/16 14:20 73 16 156/67 98 07/13/16 14:20 73 07/13/16 14:05 37.1 84 14 147/84 99 Nasal Cannula 3 Physical Exam General Appearance: WD/WN, no apparent distress Eyes: normal inspection, sclerae normal ENT: normal ENT inspection, pharynx normal Neck: supple, no adenopathy, thyroid normal, trachea midline Respiratory/Chest: chest non-tender, lungs clear, normal breath sounds, no respiratory distress Cardiovascular: regular rate, rhythm, no gallop, no murmur Abdomen: normal bowel sounds, non tender, soft, no organomegaly Extremities: non-tender, no calf tenderness, normal capillary refill Neurologic/Psychiatric: alert, oriented x 3 Skin: normal color, warm/dry, no rash, + pertinent finding (dressing in place left knee) Lymphatic: no adenopathy Laboratory Results RUN DATE: 07/14/16 [facility] LAB PAGE 1 RUN TIME: 1234 Specimen Inquiry PATIENT: DOV DORAN LOC: Louie U # : [id number] AGE/SX: 61/F ROOM: E310 REG : 07/13/[address]: Austin Yi D.O. : 1955 BED: 1 DIS : STATUS: ADM IN TLOC: SPEC #: [id number] TEAGAN: 07/13/16 STATUS: RES REQ #: [id number] RECD: 07/13/[address]: Austin Yi D.O. SOURCE: JOINT FLSP ENTR: 07/13/[address]: Tamela Alvarado D.O. SPDESC: KNEE LEFT ORDERED: AER/NIC CULTSMR Procedure Result Verified Site GRAM STAIN Final 07/13/16-1310 RESULT MANY POLYS NO ORGANISMS SEEN OR AER/NIC CULT Preliminary 07/14/16-1234 NO GROWTH TO DATE. Last 24 Hours Test 07/13/16 16:31 07/14/16 05:39 Creatinine 1.20 mg/dl 1.30 mg/dl Est Creatinine Clear Calc Drug Dose 69.1 ml/min 63.8 ml/min Estimated GFR () 55.7 50.6 Estimated GFR (Non- 48.1 43.6 White Blood Count 7.06 K/uL Red Blood Count 3.85 M/uL Hemoglobin 11.0 g/dL Hematocrit 34.4 % Mean Corpuscular Volume 89.4 fL Mean Corpuscular Hemoglobin 28.6 pg Mean Corpuscular Hemoglobin Concent 32.0 g/dl RDW Standard Deviation 47.2 fL RDW Coefficient of Variation 14.3 % Platelet Count 298 K/uL Mean Platelet Volume 9.1 fL Prothrombin Time 11.1 SECONDS Prothromb Time International Ratio 1.0 Sodium Level 140 mmol/L Potassium Level 3.8 mmol/L Chloride Level 103 mmol/L Carbon Dioxide Level 29 mmol/L Anion Gap 8.0 mmol/L Blood Urea Nitrogen 14 mg/dl BUN/Creatinine Ratio 10.8 Random Glucose 128 mg/dl Calcium Level 8.7 mg/dl Assessment and Plan 61 yo female with 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 Vancomycin appropriate pending final culture results. Will likely need PICC and prolonged IV antibiotic. Will adjust Rx once pathogen identified.
[2016-07-14 15:08] VITALS: BP 142/80; PULSE 75; TEMP 36.5; O2SAT 97
[2016-07-14] MEDS ORDERED: NURSING VERBAL MED ORDER ONE ×2 (16:15→22:30)
[2016-07-14] MEDS ORDERED: LORAZEPAM 0.5 MG TAB PO PRN (16:30)
[2016-07-14] MEDS: AMITRIPTYLINE HCL 50 MG TAB PO SCH (22:04)
[2016-07-14] MEDS: BuPROPion SR 150 MG TABCR PO SCH (22:04)
[2016-07-14] MEDS: SENNA 8.6 MG TAB PO SCH (22:04)
[2016-07-14] MEDS ORDERED: CITALOPRAM 40 MG TAB PO STA (22:24)
[2016-07-14 23:12] VITALS: BP 128/78; PULSE 77; TEMP 36.5; O2SAT 99
[2016-07-15] MEDS: VANCOMYCIN INJ 1,700 MG in SODIUM CHLORIDE 0.9% 500ML 500 ML IV SCH ×2 (01:22→17:03)
[2016-07-15] MEDS: OXYCODONE HCL IR 5 MG TAB (IMMEDIATE RELEASE) PO PRN ×2 (01:28→05:49)
[2016-07-15] MEDS: ACETAMINOPHEN 500 MG TAB PO SCH ×3 (05:49→21:12)
[2016-07-15 06:24] LABS: CREATININE 1.3 mg/dl (0.60-1.20)
--- NOTE | 2016-07-15 06:58 | Orthopedic Progress Note ---
Orthopedic Progress Note Date of Service Jul 15, 2016. Subjective Post OP Day: 2 Reports: feeling well, pain controlled w PO medications, Denies: complaints, chest pain, SOB, nausea / vomiting, light headedness, calf pain Objective calves soft nontender, N/V intact, capillary refill less than 2 sec., dressing C /D/I (prevena intact), A&O x3, toes mobile Date Time Temp Pulse Resp B/P (MAP) Pulse Ox O2 Delivery O2 Flow Rate FiO2 07/14/16 23:30 Room Air 07/14/16 23:12 36.5 77 14 128/78 (95) 99 Room Air 07/14/16 15:30 Room Air 07/14/16 15:08 36.5 75 16 142/80 (100) 97 Room Air 07/14/16 11:45 36.9 74 16 137/83 (101) 95 Room Air 07/14/16 09:30 98 Room Air 07/14/16 07:30 36.5 73 14 131/82 (98) 98 Room Air 07/14/16 07:20 Room Air Assessment & Plan Assessment: POD #2 s/p Removal of Hardware Left Knee and Replacement with Articulated Antibiotic Spacer Left Knee -will need prolonged IV antibiotics and likely PICC, awaiting intra-op cultures, currently on Vancomycin pending results -appreciate Dr Degroot ID input -needs immobilizer while ambulating but may WBAT with brace on, may loosen in bed but no forced motion beyond 30 degrees -will leave hemovac in until tomorrow -prevena wound vac x 7 days -is s/p ORIF Right wrist fx by dr macdonald, will use platform walker, also s/p partial amputation right 3rd toe by dr macdonald Discharge Planning Discharge Planning: uncertain DVT Prophylaxis: TEDs, SCDs, ASA
[2016-07-15 08:09] VITALS: BP 107/63; PULSE 74; TEMP 36.5; O2SAT 95
[2016-07-15 08:57] VITALS: BP 151/84; PULSE 91; O2SAT 96
[2016-07-15] MEDS: MULTIVITAMIN TAB PO SCH (09:13)
[2016-07-15] MEDS: OXYCODONE HCL 10 MG TABCR (OXYCONTIN) PO SCH ×2 (09:13→21:05)
[2016-07-15] MEDS: DOCUSATE SODIUM 100 MG CAP PO SCH ×2 (10:21→21:48)
[2016-07-15] MEDS: CeleBREX 200 MG CAP PO SCH ×2 (10:22→21:05)
[2016-07-15] MEDS: ASPIRIN 81 MG ECTAB PO SCH ×2 (10:22→21:48)
[2016-07-15 14:56] VITALS: BP 119/69; PULSE 72; TEMP 36.8; O2SAT 96
[2016-07-15] MEDS ORDERED: VANCOMYCIN TROUGH SCH (16:30)
--- NOTE | 2016-07-15 18:36 | Infectious Disease Progress Nt ---
Progress Note Date of Service Jul 15, 2016. Subjective Pt evaluation today including: conversation w/ patient, physical exam, chart review, lab review, review of studies, conversation w/ [employer] consultant, review of inpatient medication list Patient offering no new specific complaints today. Remains afebrile. Cultures remain no growth to date. Unable to maintain wound VAC, and now removed. All Other Systems: Reviewed and Negative Medications Current Inpatient Medications Medications (Trade) Dose Ordered Sig/Fredrick Route Start Time Stop Time Status Last Admin Dose Admin Celecoxib (CeleBREX CAP) 200 mg BID PO 07/13/16 21:00 08/12/16 20:59 07/15/16 10:22 200 MG Oxycodone HCl (Roxicodone Immediate Rel Tab) 1 TABLET FOR PAIN RATING... Q4H PRN PO 07/13/16 14:15 07/27/16 14:14 07/15/16 05:49 10 MG Oxycodone HCl (Oxycontin Tab) 10 mg Q12 PO 07/13/16 21:00 07/27/16 20:59 07/15/16 09:13 10 MG Acetaminophen (Tylenol Tab) 1,000 mg Q8H PO 07/13/16 22:00 08/12/16 21:59 07/15/16 13:45 1,000 MG Magnesium Hydroxide (Milk Of Magnesia Susp) 30 ml Q6H PRN PO 07/13/16 14:15 08/12/16 14:14 Bisacodyl (Dulcolax Supp) 10 mg DAILY PRN [place] 07/13/16 14:15 08/12/16 14:14 Sodium Biphosphate/ Sodium Phosphate (Fleet Enema) 132 ml DAILY PRN [place] 07/13/16 14:15 08/12/16 14:14 Senna (Senokot Tab) 17.2 mg HS PO 07/13/16 21:00 08/12/16 20:59 07/14/16 22:04 17.2 MG Docusate Sodium (coLACE CAP) 100 mg BID PO 07/13/16 21:00 08/12/16 20:59 07/15/16 10:21 100 MG Diphenhydramine HCl (Benadryl Cap) 25 mg Q8H PRN PO 07/13/16 14:15 08/12/16 14:14 Zolpidem Tartrate (Ambien Tab) 5 mg HSZ PRN PO 07/13/16 14:15 08/12/16 14:14 Multivitamins (Multivitamin Tab) 1 tab QAM PO 07/14/16 09:00 08/13/16 08:59 07/15/16 09:13 1 TAB Ondansetron HCl (Zofran Inj) 4 mg Q6H PRN IV 07/13/16 14:15 08/12/16 14:14 Aspirin (Ecotrin Tab) 81 mg BID PO 07/13/16 21:00 08/12/16 20:59 07/15/16 10:22 81 MG Amitriptyline HCl (Elavil Tab) 50 mg HS PO 07/13/16 21:00 08/12/16 20:59 07/14/16 22:04 50 MG Bupropion HCl (Wellbutrin-Sr Tab) 150 mg HS PO 07/13/16 21:00 08/12/16 20:59 07/14/16 22:04 150 MG Metronidazole HCl (Metrogel Topical Gel) 1 appln UD TOP 07/13/16 21:00 07/23/16 20:59 Morphine Sulfate (MoRPHine SULFATE INJ) 2 mg Q4HWA PRN IV 07/13/16 14:15 07/27/16 14:14 07/13/16 17:23 2 MG Morphine Sulfate (MoRPHine SULFATE INJ) 4 mg Q4HWA PRN IV 07/13/16 16:00 07/27/16 15:59 07/13/16 18:07 4 MG Morphine Sulfate (MoRPHine SULFATE INJ) 6 mg Q4HWA PRN IV 07/13/16 16:00 07/27/16 15:59 Vancomycin HCl (Consult) 1 ea UD PRN N/A 07/13/16 17:00 08/12/16 16:59 Vancomycin HCl 1700 mg/Sodium Chloride 534 ml @ 200 mls/hr Q16H IV 07/14/16 09:00 08/25/16 08:59 07/15/16 17:03 200 MLS/HR Lorazepam (Ativan Tab) 0.5 mg Q8H PRN PO 07/14/16 16:30 08/13/16 16:29 07/14/16 16:36 0.5 MG Citalopram Hydrobromide (celeXA TAB) 40 mg HS PO 07/15/16 21:00 08/14/16 20:59 Objective Vital Signs Date Time Temp Pulse Resp B/P (MAP) Pulse Ox O2 Delivery O2 Flow Rate FiO2 07/15/16 14:56 36.8 72 16 119/69 (86) 96 Room Air 07/15/16 08:57 91 96 07/15/16 08:09 36.5 74 17 107/63 (78) 95 Room Air 07/15/16 07:15 Room Air 07/14/16 23:30 Room Air 07/14/16 23:12 36.5 77 14 128/78 (95) 99 Room Air Physical Exam General Appearance: WD/WN, no apparent distress Eyes: normal inspection, sclerae normal ENT: normal ENT inspection, pharynx normal Neck: supple, no adenopathy, thyroid normal, trachea midline Respiratory/Chest: lungs clear, normal breath sounds, no respiratory distress Cardiovascular: regular rate, rhythm, no gallop, no murmur Abdomen: normal bowel sounds, non tender, soft, no organomegaly Extremities: non-tender, no calf tenderness Neurologic/Psychiatric: alert, oriented x 3 Skin: normal color, no rash, + pertinent finding ( Dressing intact left knee) Lymphatic: no adenopathy Laboratory Results RUN DATE: 07/15/[address] [facility] LAB PAGE 1 RUN TIME: 1143 Specimen Inquiry PATIENT: DOV DORAN LOC: Louie Holloway # : [id number] AGE/SX: 61/F ROOM: E310 REG : 07/13/[address]: Austin Yi D.O. : 1955 BED: 1 DIS : STATUS: ADM IN TLOC: SPEC #: [id number] TEAGAN: 07/13/16 STATUS: RES REQ #: [id number] RECD: 07/13/[address]: Austin Yi D.O. SOURCE: JOINT FLSP ENTR: 07/13/[address]: Tamela Alvarado D.O. SPDESC: KNEE LEFT ORDERED: AER/NIC CULTSMR Procedure Result Verified Site GRAM STAIN Final 07/13/16-1310 RESULT MANY POLYS NO ORGANISMS SEEN OR AER/NIC CULT Preliminary 07/15/16-1143 NO GROWTH TO DATE. 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 cultures have been no growth, so we will need to treat empirically, and recommend use of vancomycin for planned 6 week course of therapy. Would like to see patient in 2 weeks in follow-up as an outpatient.
--- NOTE | 2016-07-15 19:46 | Pharmacy Progress Note ---
Pharmacy Antibiotic Prog Note Date of Service Jul 15, 2016. Subjective The patient is currently receiving vancomycin 1700 mg IV every 16 hours. The patient is currently on day # 3 of probable 6 weeks of vancomycin IV therapy. Objective Height (Feet): 6 Height (Inches): 1 Weight (Kilograms): 115.000 Levels: Item Value Date Time Vancomycin Level Trough 21.7 mcg/ml 07/15/16 1625 Previous dose started late 07/15 @0215. Lab Results (24hrs): Test 07/15/16 05:25 07/15/16 16:25 07/15/16 18:58 Creatinine 1.30 mg/dl (0.60-1.20) Est Creatinine Clear Calc Drug Dose 63.8 ml/min Estimated GFR () 50.6 Estimated GFR (Non- 43.6 Vancomycin Level Trough 21.7 mcg/ml (SEE COMMENT) Erythrocyte Sedimentation Rate 65 mm/hr (0-21) C-Reactive Protein 11.10 mg/dl (0-0.29) Micro Results: 07/13 joint space/synovial fluid left knee NGTD Recent Pertinent Medications Item Value Date Time Vancomycin HCl 534 ml @ 200 mls/hr 07/16/16 1100 1700 mg/Sodium Q18H/IV Chloride Vancomycin HCl 534 ml @ 200 mls/hr 07/14/16 0900 1700 mg/Sodium Q16H/IV 07/15/16 1703 Chloride Vancomycin HCl 555 ml @ 200 mls/hr 07/13/16 1630 2750 mg/Sodium TODAY@1630 ONCE/IV 07/13/16 1648 Chloride Assessment & Plan This drug level is: slightly Supratherapeutic. Previous dose was inadvertently started late so this is not a true trough. Change to vancomycin 1700 mg IV every 18 hours. Goal trough level estimate: between 15-20 mcg/mL. Trough has been ordered for: 07/17/16 before 2300 dose. Pharmacy will continue to follow and will adjust dose/frequency as necessary. Thank you
[2016-07-15] MEDS ORDERED: CITALOPRAM 40 MG TAB PO SCH (21:00)
[2016-07-15] MEDS: BuPROPion SR 150 MG TABCR PO SCH (21:48)
[2016-07-15] MEDS: SENNA 8.6 MG TAB PO SCH (21:48)
[2016-07-15] MEDS: AMITRIPTYLINE HCL 50 MG TAB PO SCH (21:48)
[2016-07-15 23:41] VITALS: BP 152/87; PULSE 89; TEMP 36.4; O2SAT 95
[2016-07-16] MEDS: ACETAMINOPHEN 500 MG TAB PO SCH ×2 (05:48→13:34)
[2016-07-16 06:40] LABS: CREATININE 1.2 mg/dl (0.60-1.20)
[2016-07-16 07:47] VITALS: BP 130/70; PULSE 76; TEMP 36.5; O2SAT 93
[2016-07-16] MEDS: CeleBREX 200 MG CAP PO SCH (08:49)
[2016-07-16] MEDS: MULTIVITAMIN TAB PO SCH (08:49)
[2016-07-16] MEDS: OXYCODONE HCL 10 MG TABCR (OXYCONTIN) PO SCH (08:50)
[2016-07-16] MEDS: DOCUSATE SODIUM 100 MG CAP PO SCH (09:31)
[2016-07-16] MEDS: ASPIRIN 81 MG ECTAB PO SCH (09:31)
[2016-07-16] MEDS ORDERED: VANCOMYCIN INJ 1,700 MG in SODIUM CHLORIDE 0.9% 500ML 500 ML IV SCH (11:00)
--- NOTE | 2016-07-16 12:18 | Orthopedic Progress Note ---
Orthopedic Progress Note Date of Service Jul 16, 2016. Subjective Reports: feeling well, Denies: complaints, chest pain, SOB, nausea / vomiting, light headedness, calf pain Additional Notes: Pain well controlled. No fever or chills. Minimal knee pain. Objective calves soft nontender, N/V intact, capillary refill less than 2 sec., A&O x3, toes mobile Prevena drain with good suction and intact. Occasional beeping of unit without leak detected. No erythema or streaking. AROM/PROM slightly improved. PICC line in place. No calf tenderness. Date Time Temp Pulse Resp B/P (MAP) Pulse Ox O2 Delivery O2 Flow Rate FiO2 07/16/16 08:05 Room Air 07/16/16 07:47 36.5 76 19 130/70 (90) 93 Room Air 07/16/16 00:00 Room Air 07/15/16 23:41 36.4 89 16 152/87 (108) 95 Room Air 07/15/16 16:00 Room Air 07/15/16 14:56 36.8 72 16 119/69 (86) 96 Room Air Assessment & Plan Assessment: POD #3 s/p Removal of Hardware Left Knee and Replacement with Articulated Antibiotic Spacer Left Knee -will need 6 weeks IV antibiotics and PICC, final cultures with NGTD, Continue Vancomycin for [address] Degroot w/ ID -needs immobilizer while ambulating but may WBAT with brace on, may loosen in bed but no forced motion beyond 30 degrees -prevena wound vac x 7 days -s/p ORIF Right wrist fx by Dr Long and partial amputation right 3rd toe by Dr Long; will use platform walker -D/C to [facility] today after 5PM -F/U with Dr Yi 2 weeks; F/U with Dr Long as previously scheduled. Discharge Planning Discharge Planning: uncertain DVT Prophylaxis: TEDs, SCDs, ASA
[2016-07-16] MEDS ORDERED: ASPEC81 PO (12:27)
[2016-07-16] MEDS ORDERED: OXYSR10 PO (12:27)
[2016-07-16] MEDS ORDERED: [UNRECOGNIZED DRUG - REMARK] (12:27)
[2016-07-16] MEDS ORDERED: ACET-1138 PO (12:27)
[2016-07-16] MEDS ORDERED: RXC5 PO (12:27)
--- NOTE | 2016-07-16 12:32 | Discharge Instructions ---
Discharge Instructions Date of Service Jul 16, 2016. Admission Reason for Admission: Left Knee Infection & Imflammatory Reaction D/T In Discharge Discharge Diagnosis / Problem: Left TKA infection Discharge Goals Goal(s): Decrease discomfort, Improve function Activity Recommendations Activity Limitations: as noted below Weightbearing Status: Left weightbearing (as tolerated) . Instructions / Follow-Up Instructions / Follow-Up WBAT left lower extremity with walker/cane. Frequent ice and elevation. Maintain Prevena wound vac x 7 days from surgery then may remove and discard. May shower with wound vac in place. Gentle ROM left knee as tolerated. Current Hospital Diet Patient's current hospital diet: Regular Diet Discharge Diet Recommended Diet: Regular Diet Procedures Procedures Performed: Removal of Hardware Left Knee and Replacement with Articulated Antibiotic Spacer Left Knee Pending Studies Studies pending at discharge: no Laboratory Results Hemoglobin A1c Test 07/06/16 15:14 Range/Units Estimated Average Glucose 126 mg/dl Hemoglobin A1c 6.0 H 4.5-5.6 % Medical Emergencies . Who to Call and When: Medical Emergencies: If at any time you feel your situation is an emergency, please call 911 immediately. . Non-Emergent Contact Non-Emergency issues call your: Surgeon Call Non-Emergent contact if: temperature is above 101.5, your pain is not controlled, wound has increased drainage, wound has increased redness . "Provider Documentation" section prepared by Ellis Argueta PA-C. . VTE Core Measure Inpt VTE Proph given/why not?: Other Anticoagulation (ASA 81mg bid), T.E.D. Stockings, SCD's [place] Drug Monitoring Program Search Results: patient reviewed within database, no issues identified
[2016-07-16 14:29] VITALS: BP 130/70; PULSE 76; TEMP 36.5; O2SAT 93
[2016-07-16 14:32] VITALS: BP 130/70; PULSE 76; TEMP 36.5; O2SAT 93
[2016-07-16 15:30] VITALS: O2SAT 99
[2016-07-16 15:35] VITALS: BP 138/84; PULSE 81; TEMP 36.9; O2SAT 99
--- NOTE | 2016-07-17 18:14 | Discharge Summary ---
Orthopedic Discharge Summary Admission Date/Reason July 13, 2016 at 11:30 Left Knee Infection & Imflammatory Reaction D/T In. Discharge Date/Disposition Jul 16, 2016 [facility] Diagnosis Principal Diagnosis: Infected Left Total Knee Replacement Secondary Diagnoses/Problems: 1. Hypertension. 2. Sleep apnea. 3. Anxiety. 4. Acid reflux. 5. Obesity. 6. Right wrist fracture s/p ORIF 7. 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 Degroot- Infectious Disease Pharmacy- Vancomycin dosing Medication Reconciliation New Medications: Acetaminophen (Tylenol Extra Strength) 500 Mg Tab 1000 MG PO Q8H for 30 Days, TAB Aspirin (Aspirin EC Low Dose) 81 Mg Ectab 81 MG PO BID for 30 Days Oxycodone HCl (Oxycontin) 10 Mg Tabcr 10 MG PO Q12 for 10 Days, #20 Oxycodone HCl (Oxycodone HCl) 5 Mg Tab 5-10 MG PO Q4-6 PRN for Pain, #60 TAB [Vanc. Trough] () 1 EA MISC 1 EA N/A q3 days Vanco peak and trough q 3 days beginning 07/19/16 Continued Medications: Amitriptyline Hcl (Elavil) 50 Mg Tab 50 MG PO HS, 0 Refills Bupropion (Wellbutrin Sr) 150 Mg Ertab 150 MG PO HS, TAB Celecoxib (CeleBREX) 200 Mg Cap 200 MG PO QAM, CAP Citalopram Hydrobromide (Celexa) 20 Mg Tab Unknown Dose PO HS, TAB Pantoprazole (Protonix) 40 Mg Tab 40 MG PO QAM, #30 0 Refills Senna (Senokot) 8.6 Mg Tab 1 TAB PO BID, TAB Triamterene/Hctz (Maxzide 75MG/50MG) Tab 1 TAB PO QAM, 0 Refills [Metrogel] () 1 DOSE TOP UD PRN for FACE Discontinued Medications: Oxycodone/Acetaminophen 5MG/325MG (Percocet 5MG/325MG) Tab 2 TABLETS PO Q6H PRN for Pain, TAB PAIN Admission Physical Exam As per Admitting History & Physical. Hospital Course Patient was a same day admission after undergoing removal of infected left TKA and placement of antibiotic spacer. Intra-op findings showing GREATER THAN 15 NEUTROPHILS PER HIGH-POWER FIELD, gram stain no organisms but many polys, culture NGTD. She tolerated the procedure well. Post-operatively, her activity was progressed and well tolerated. Please refer to daily progress notes and PT notes for complete details. After exam on 07/16/16, patient felt to be stable for discharge to assisted facility of IV Vancomycin for approximately 6 weeks. Patient will f/u in the office in 2 weeks for further evaluation including x-rays and incision check, sooner if having any issues or concerns. She will also follow up with Dr Degroot as well as routine labs due to being on IV antibiotics. Below are pertinent labs/studies during their hospital stay: Last Resulted CBC 07/14/16 05:39 Last Resulted BMP 07/14/16 05:39 07/16/16 05:30 Last Vital Signs Documentation Date Time Temp Pulse Resp B/P (MAP) Pulse Ox O2 Delivery O2 Flow Rate FiO2 07/16/16 15:35 36.9 81 17 138/84 (102) 99 Room Air 07/14/16 03:55 2.0 Discharge Instructions Please refer to the electronic Patient Visit Report (Discharge Instructions) for additional information.
[2016-07-17] MEDS ORDERED: VANCOMYCIN TROUGH SCH (22:30)
--- NOTE | 2016-09-01 13:17 | [facility] Operative Report ---
Operative Report Date of Service Sep 01, 2016. Operative Report PA-C was necessary for prepping and drapping as well as wound closure of deep fascia Sub cutaneous tissue and skin and was necessary for the case. A sterile compressive dressing was placed patient was taken to recovery in stable condition of report dictated by Kd Rowell attest to the content of the Intraoperative Record and any orders documented therein. Any exceptions are noted below.
[2016-09-06] MEDS ORDERED: OXYC-57 PO (12:43)
[2016-09-06] MEDS ORDERED: MCRK/10 PO (12:43)
[2016-09-19] MEDS ORDERED: MCRK20 PO (12:15)
== END 2016-07-16 17:25 | DRG 487 ==
LOC: ENRESERVDT → ENRESERVTM → C.ACU 10:41 → C.3E 11:30
PROVIDERS: ADMIT Orthopaedic Surgery; ATTEND Orthopaedic Surgery
PROC: 0SPD04Z Removal of Internal Fixation Device from Left Knee Joint, Open Approach (ICD-10-PCS; principal; 2016-07-13 12:00)
PROC: 0SHD08Z Insertion of Spacer into Left Knee Joint, Open Approach (ICD-10-PCS; principal; 2016-07-13 12:00)
DX: T84.54XA Infection and inflammatory reaction due to internal left knee prosthesis, initial encounter (principal); T84.033A Mechanical loosening of internal left knee prosthetic joint, initial encounter; I10 Essential (primary) hypertension; G47.30 Sleep apnea, unspecified; F41.9 Anxiety disorder, unspecified; K21.9 Gastro-esophageal reflux disease without esophagitis; Z89.421 Acquired absence of other right toe(s); Z79.82 Long term (current) use of aspirin; Y83.1 Surgical operation with implant of artificial internal device as the cause of abnormal reaction of the patient, or of later complication, without mention of misadventure at the time of the procedure

== ENCOUNTER → 2016-09-02 | Outpatient (CLI) | payer BC ==
[~2016-09-02] MED LIST changes: +ACET-1138 PO; +ACET-24 PO; +ASPEC81 PO; -BUPIVACAINE 0.25% 30 ML VIAL ONE; -BUPIVACAINE 0.5 % 5 MG/1 ML PF 10ML VIAL ONE; -CEFAZOLIN 3000 MG/65 ML D5W 65 ML IV SCH; +CLC100 PO; -LACTATED RINGER'S 1000ML 1,000 ML IV SCH; +MCRK/10 PO; +MCRK20 PO; -MIDAZOLAM HCL 1 MG/ML 2ML VIAL ONE; +ONDA8TAB6 PO; +OXYC-57 PO; +OXYSR10 PO; -PATIENT'S HEIGHT AND/OR WEIGHT NEEDED SCH; +RXC5 PO; +SENN-61 PO; -TRAM-10 PO; +[UNRECOGNIZED DRUG - REMARK]
[2016-09-02 20:49] LABS: SYNOVIAL FLUID APPEARANCE HAZY; SYNOVIAL FLUID COLOR YELLOW; SYNOVIAL FLUID MONONUC RELAT 81.1 %; SYNOVIAL FLUID POLYNUC RELAT 18.9 %
== END | disposition home or self-care (01) ==
LOC: C.LAB 17:40
PROVIDERS: ATTEND Orthopaedic Surgery
DX: T84.7XXD Infection and inflammatory reaction due to other internal orthopedic prosthetic devices, implants and grafts, subsequent encounter (principal); X58.XXXD Exposure to other specified factors, subsequent encounter

== ENCOUNTER 2016-09-20 09:23 | Inpatient (IN) | payer BC ==
[2016-09-06 12:52] VITALS: BMI 33.0
--- NOTE | 2016-09-06 17:56 | History and Physical ---
History & Physical Date Sep 06, 2016. Chief Complaint Left Knee Pain History of Present Illness Geraldine is a pleasant 61-year-old female who presented for preop evaluation prior to removal of antibiotic spacer and revision Left Total knee replacement. The patient initially had bilateral knee replacements performed in 04/16/2007 and had an uneventful postoperative course. She followed up earlier this year after having increased pain and swelling in her knee without any known injuries or trauma. Of note, she did develop an infection in her right foot third toe, which has been treated by Dr. Long. At this point in time, Dr. Long did perform a right third toe partial amputation as well as manipulation under anesthesia of her other toes. The infection is now cleared, she underwent Synovasure testing of her left knee which showed positive alpha defensins, the total nucleated cell count was 68,563, and neutrophils were 94.9. She also underwent a bone scan which showed moderate increased vascular flow as well activity to the left knee, this is most prominent in the region of the patient's femoral prosthetic, the possibility of developing loosening is to be considered. At this point in time, after discussing further care, will proceed with a left knee arthrotomy, possible poly exchange, possible antibiotic spacer. on 07/13/16, Dr mcgrath performed Left knee arthrotomy with removal of infect TKA and placement of antibiotic spacer. She has completed her IV antibiotics with Vancomycin, had aspiration performed which shows infection has cleared. Past Medical/Surgical History Medical Problems: (1) Infection of total knee replacement PAST MEDICAL HISTORY: 1. Hypertension. 2. Sleep apnea. 3. Anxiety. 4. Acid reflux. 5. Obesity. Additional History Kidney Disease: No Hypertension: Yes Heart Disease: No Bleeding Tendencies: No Allergies Coded Allergies: Latex1 -Allergic Contact Dermititis (Verified Allergy, Mild, SEVERE RASH AND HIVES, 09/06/16) Sulfa Antibiotics (Verified Allergy, Mild, rash, 07/13/16) Bacitracin (Verified Allergy, Unknown, RASH, 09/06/16) Flu Virus Vaccine (Verified Allergy, Unknown, RASH AT INJECTION SITE, 09/06) Metronidazole (Verified Allergy, Unknown, RASH, 09/06/16) Minocycline (Verified Allergy, Unknown, RASH, 09/06/16) Neomycin (Verified Allergy, Unknown, RASH, 09/06/16) Polymyxin B (Verified Allergy, Unknown, RASH, 09/06/16) Terconazole (Verified Allergy, Unknown, RASH, 09/06/16) Home Medications Scheduled Amitriptyline Hcl (Elavil), 50 MG PO HS Bupropion (Wellbutrin Sr), 150 MG PO HS Citalopram Hydrobromide (Celexa), 30 MG PO HS Pantoprazole (Protonix), 40 MG PO QAM Potassium Chloride (K-Tabs), 20 MEQ PO QAM Senna (Senokot), 1 TAB PO BID Triamterene/Hctz (Maxzide 75MG/50MG), 1 TAB PO QAM Scheduled PRN Oxycodone/Acetaminophen 5MG/325MG (Percocet 5MG/325MG), 1 TABLET PO Q6H PRN for Pain [Metrogel], 1 DOSE TOP UD PRN for FACE Physical Examination Skin: warm/dry, no rash Eyes: normal inspection, EOMI, sclerae normal ENT: normal ENT inspection, pharynx normal Neck: supple, no adenopathy, trachea midline Respiratory/Chest: lungs clear, normal breath sounds, no respiratory distress Cardiovascular: regular rate, rhythm, no edema, no murmur Addiitonal Comments: left knee, well healed surgical incision. NVDI. stable to valgus/varus stress. positive crepitation noted. no erythema or warmth, mild effusion noted. Calf SNT Test 07/06/16 15:14 07/13/16 11:08 07/14/16 05:39 07/15/16 05:25 Erythrocyte Sedimentation Rate 80 H Prothrombin Time 10.9 11.1 Prothrombin Time INR 1.0 1.0 PTT 30.1 Partial Thromboplastin Ratio 1.2 Urine Color YELLOW Urine Appearance TURBID Urine pH 8.0 H Urine Specific [place] 1.018 Urine Protein NEG Urine Glucose (UA) NEG Urine Ketones NEG Urine Occult Blood NEG Urine Nitrite NEG Urine Bilirubin NEG Urine Urobilinogen NEG Urine Leukocyte Esterase NEG Urine WBC (Auto) 1-5 Urine RBC (Auto) 10-30 H Urine Hyaline Casts (Auto) 1-5 Urine Epithelial Cells (Auto) >30 H Urine Bacteria (Auto) NEG Blood Urea Nitrogen 15 14 Estimated Average Glucose 126 Hemoglobin A1c 6.0 H Albumin 3.2 L Hepatitis C Antibody Screen NEG White Blood Count 7.06 Red Blood Count 3.85 L Hemoglobin 11.0 L Hematocrit 34.4 L Mean Corpuscular Volume 89.4 Mean Corpuscular Hemoglobin 28.6 Mean Corpuscular Hemoglobin Concent 32.0 RDW Standard Deviation 47.2 H RDW Coefficient of Variation 14.3 Platelet Count 298 Mean Platelet Volume 9.1 Sodium Level 140 Potassium Level 3.8 Chloride Level 103 Carbon Dioxide Level 29 Anion Gap 8.0 Creatinine 1.30 H 1.30 H Est Creatinine Clear Calc Drug Dose 63.8 63.8 Estimated GFR () 50.6 50.6 Estimated GFR (Non- 43.6 43.6 BUN/Creatinine Ratio 10.8 Random Glucose 128 H Calcium Level 8.7 Test 07/15/16 16:25 07/15/16 18:58 07/16/16 05:30 09/02/16 15:45 Vancomycin Level Trough 21.7 Erythrocyte Sedimentation Rate 65 H C-Reactive Protein 11.10 H Creatinine 1.20 Est Creatinine Clear Calc Drug Dose 69.1 Estimated GFR () 55.7 Estimated GFR (Non- 48.1 Synovial Fluid Source KNEE Synovial Fluid Color YELLOW Synovial Fluid Appearance HAZY Synovial Fluid WBC 841 H Synovial Fluid RBC 5000 Synovial Fluid Polynuclear WBCs % 18.9 Synovial Fluid Mononuclear WBCs % 81.1 Synovial Fluid Crystals Diagnosis Infected left TKA s/p I&D and placement of antibiotic spacer. has undergone IV Abx therapy with vancomycin. recent knee aspiration showing negative gram stain and cultures, will proceed with removal of spacer and revision Left TKA.
[~2016-09-20] VITALS: Ht 185.4 cm; Wt 119.4 kg
[2016-09-20] VITALS (7 sets, daily range): BP systolic 108–123; BP diastolic 71–82; PULSE 60–71; TEMP 36.4–36.9; O2SAT 93–100; Ht 185.4 cm; Wt 119.4 kg
[2016-09-20] MEDS: TRANEXAMIC ACID INJ 1,000 MG in SODIUM CHLORIDE 0.9% 100ML 100 ML IV SCH ×2 (06:30→11:45)
[~2016-09-20 09:23] MED LIST changes: -ACET-1138 PO; -ACET-24 PO; -ASPEC81 PO; +ATROPINE SULFATE 0.1 MG/ML 5ML SYR IV PRN; +BUPIVACAINE 0.25% 30 ML VIAL ONE; +BUPIVACAINE 0.5 % 5 MG/1 ML PF 10ML VIAL ONE; +CEFAZOLIN 3000 MG/65 ML D5W 65 ML IV SCH; -CLB/200 PO; -CLC100 PO; +EpHEDrine SULFATE INJ 50 MG/ML AMP IV PRN; +FAMOTIDINE 20 MG TAB PO SCH; +FENTANYL CITRATE INJ 50 MCG/1 ML 2 ML VIAL IV PRN; +LACTATED RINGER'S 1000ML IV SCH; -MCRK/10 PO; +METOCLOPRAMIDE HCL 10 MG TAB PO SCH; -ONDA8TAB6 PO; +ONDANSETRON INJ 2 MG/ML 2 ML VIAL IV PRN; -OXYSR10 PO; +ROPIVACAINE 5MG/ML 30 ML 150 MG, BUPIVACAINE/EPINEPHR 0.5% MPF 30 ML, KETOROLAC TROMETH... INFIL SCH; -RXC5 PO; +SODIUM CHLORIDE 0.9% 1000ML 1,000 ML IV SCH; -[UNRECOGNIZED DRUG - REMARK]
[2016-09-20 09:58] LABS: BASO % 0.2 %; BASO ABS # 0.01 K/uL (0-0.2); EOS % 1.7 %; HEMATOCRIT 41.7 % (37-47); IG% 0.2 %; LYMPH % 29.2 %; LYMPH ABS # 1.87 K/uL (1.2-3.4); MEAN CELL VOLUME 89.3 fL (80-100); MEAN CORPUSCULAR HEMOGLOBIN 30.2 pg (25-34); MEAN PLATELET VOLUME 9.5 fL (7.4-10.4); MONO % 8.3 %; NEUT % 60.4 %; PLATELET COUNT 276 K/uL (130-400); RED BLOOD COUNT 4.67 M/uL (4.2-5.4); WHITE BLOOD COUNT 6.41 K/uL (4.8-10.8)
[2016-09-20] MEDS ORDERED: VANCOMYCIN INJ 1,750 MG in SODIUM CHLORIDE 0.9% 500ML 500 ML IV SCH (10:00)
[2016-09-20 10:07] LABS: PROTHROMBIN TIME (PATIENT) 10.5 SECONDS (9.0-12.0)
[2016-09-20] MEDS ORDERED: MIDAZOLAM HCL 1 MG/ML 2ML VIAL ONE (10:21)
[2016-09-20] MEDS ORDERED: FENTANYL CITRATE INJ 50 MCG/1 ML 2 ML VIAL ONE (10:21)
[2016-09-20 10:22] LABS: CALCIUM 9.5 mg/dl (8.5-10.1); CREATININE 1.8 mg/dl (0.60-1.20); POTASSIUM 3.9 mmol/L (3.5-5.1)
[2016-09-20] MEDS: DEXAMETHASONE 4 MG TAB PO SCH ×2 (10:22→10:57)
[2016-09-20 10:23] LABS: COMPLETE YES; MEAN CORPUSCULAR HGB CONC 33.8 g/dl (32-36)
[2016-09-20] MEDS: GABAPENTIN 300 MG CAP PO SCH ×2 (10:23→10:57)
[2016-09-20] MEDS: ACETAMINOPHEN 500 MG TAB PO SCH ×3 (10:24→22:11)
[2016-09-20] MEDS ORDERED: ORTHO JOINT ANESTHETIC ONE (11:12)
[2016-09-20] MEDS ORDERED: POVIDONE-IODINE OP SOLN 30 ML BTL ONE (11:13)
[2016-09-20] MEDS ORDERED: BACITRACIN 50000 UNIT VIAL ONE (11:13)
[2016-09-20 11:39] LABS: URINE APPEARANCE CLEAR (CLEAR); URINE BILIRUBIN NEG (NEG); URINE COLOR YELLOW; URINE EPITHELIAL CELL AUTO 20-30 /lpf (0-5); URINE NITRITE NEG (NEG); URINE SPECIFIC GRAVITY 1.018 (1.000-1.030); UROBILINOGEN NEG (NEG)
[2016-09-20 11:40] LABS: MANUAL MICROSCOPIC REQUIRED? NO; REVIEW REQ? NO
[2016-09-20] MEDS ORDERED: PROPOFOL IV EMULSION 10 MG/ML 20 ML VIAL IV ONE (13:20)
[2016-09-20] MEDS ORDERED: LIDOCAINE HCL 2% 2 ML VIAL (20MG/ML) ONE (13:20)
--- NOTE | 2016-09-20 13:54 | [facility] Operative Report ---
Operative Report Operative Date Sep 20, 2016. Pre-Operative Diagnosis Left infected Total Knee Arthroplasty s/p Incision and Drainage and Antibiotic Spacer Placement Post-Operative Diagnosis Left infected Total Knee Arthroplasty s/p Incision and Drainage and Antibiotic Spacer Placement Procedure(s) Performed Removal of Antibiotic Spacer and Left Total Knee Arthroplasty Revision utilizing a lesion Legion component Garcia nephMonetate size 5 femur with 160 mm stem 16 mm diameter 4 mm offset set at 5:00 5 mm posterior distal and lateral wedges 4 tibia by 15 high flex Zoe with a 13 mm diameter by 164 6 mm offset set at 9:30 patella [address] Yi Cloth Stretcher Surgeon(s) Don Ramos PA-C Estimated Blood Loss 10cc Findings Patient presents after having had an antibiotic spacer presented placed and for removal and revision to a total knee arthroplasty she developed an infected left total knee arthroplasty after having infection or fluid conceding her knee out preoperative aspiration showed no sign of infection no growth on culture and no organisms are seen interoperative white cells per high-power field less than 5 acute inflammation was noted preoperative sedimentation rate and C- reactive protein levels rendering normal limits Specimens Micro: #1 Synovial Fluid Left knee - gram stain aerobic and anaerobic Frozen: #1 Left Tibia bone prosthetic interface - # of White Blood Cells per High Power Field #2 Left Femur bone prosthetic interface - # of White Blood Cells per High Power Field Complication(s) None Disposition Recovery Room / PACU Indications Status post cinematic spacer for revision for back to a stem component Legion total knee arthroplasty Description of Procedure After proper prepping and draping the left lower extremity incision made in revision previous incision dissection carried down through the subcutaneous tissues to the region medial parapatellar incision a medial parapatellar incision was socially made the patella subluxed lateralward interoperative synovial fluid was cultured stat Gram stain revealed no organisms noted components of the femur and loosely cemented the tibial anabolic components were cemented loosened tibial middle cemented loosely were removed Lausier irrigated with 9 L of sterile saline solution with bacitracin subsequently a versa jet was used to clean all soft tissue removal debris the patellar component was removed utilizing intermedullary reamers the femur and tibia were both reamed successively at the same time to a place intramedullary components of the trial 5 x 16 x 160 stem with a 4 mm offset set at 5:00 in excellent coverage and fixation on the femur there were 5 mm posterior and lateral augment noted a 4 x 15 with a 13 mm stem by 160 with a 6 Moler offset at 9:30 was used on the tibia after trialing a 15 mm poly-gave excellent stability in both flexion and extension mid flexion 38 mm oval patella gave excellent tracking socially the following components were assembled the back table wound been ordered irrigated with compressive sterile saline solution via pulsatile lavage intra-articular injection of joint cocktail was placed for postoperative pain management wound having been thoroughly irrigated debridement lavage the tibia all by the femur followed by the patellar components were socially also cemented the uteropelvic proptosis and closed with #1 Vicryl subcutaneous screws 2 Vicryl skin was closed with skin clips sterile compressive dressing placed patient was taken to recovery in stable condition. Report dictated by Kd Alas I attest to the content of the Intraoperative Record and any orders documented therein. Any exceptions are noted below.
[2016-09-20] MEDS ORDERED: FLUMAZENIL 0.1 MG/1 ML 10 ML VIAL IV ONE (14:21)
[2016-09-20] MEDS ORDERED: MAGNESIUM HYDROXIDE SUSP 30 ML UDC PO PRN (14:45)
[2016-09-20] MEDS ORDERED: ALUMINUM/MAGNESIUM/SIMETH (MAALOX MAX) 30 ML UDC PO PRN (14:45)
[2016-09-20] MEDS ORDERED: MoRPHine SULFATE 2 MG/ML CARP IV PRN (14:45)
[2016-09-20] MEDS ORDERED: ONDANSETRON INJ 2 MG/ML 2 ML VIAL IV PRN (14:45)
[2016-09-20] MEDS ORDERED: BISACODYL 10 MG SUPP PR PRN (14:45)
--- NOTE | 2016-09-20 14:56 | Anesthesiology Progress Note ---
Anesthesia Post Op Note Date & Time Sep 20, 2016 at 14:56 Vital Signs Pain Intensity: 0 Vital Signs Past 12 Hours Date Time Temp Pulse Resp B/P (MAP) Pulse Ox O2 Delivery O2 Flow Rate FiO2 09/20/16 14:45 72 16 120/73 99 Oxymask 10 09/20/16 14:35 75 16 129/70 99 Oxymask 10 09/20/16 14:28 36.1 79 16 134/69 99 Oxymask 10 09/20/16 10:04 Room Air Notes Mental Status: alert / awake / arousable, participated in evaluation Pt Amnestic to Procedure: Yes Nausea / Vomiting: adequately controlled Pain: adequately controlled Airway Patency, RR, SpO2: stable & adequate BP & HR: stable & adequate Hydration State: stable & adequate Neuraxial Anesthesia: was administered, sensory block is resolving Anesthetic Complications: no major complications apparent
--- NOTE | 2016-09-20 15:11 | DIAGNOSTIC IMAGING REPORT ---
LEFT KNEE 1 OR 2 VIEWS ROUTINE CLINICAL HISTORY: AP/LATERAL IN PACU LEFT KNEE joint replacement COMPARISON: 07/13/2016 DISCUSSION: Longstem total left knee revision. Good contact between prosthetic and underlying bone. Expected soft tissue postoperative change. Surgical drains in position. IMPRESSION: Anatomic alignment status post total left knee revision The above report was generated using voice recognition software. It may contain grammatical, syntax or spelling errors. Electronically signed by: Og Clark M.D. 09/20/2016 3:10 PM Dictated Date/Time: 09/20/2016 3:09 PM
[2016-09-20] MEDS: SODIUM CHLORIDE 0.9% 1000ML 1,000 ML IV SCH (16:39)
[2016-09-20] MEDS ORDERED: MoRPHine SULFATE 10 MG/ML CARP/VIAL IV PRN (17:00)
[2016-09-20] MEDS ORDERED: MoRPHine SULFATE 4 MG/ML 1 ML CARP\\VIAL IV PRN (17:00)
[2016-09-20] MEDS: FERROUS GLUCONATE 324 MG TAB PO SCH (18:14)
[2016-09-20] MEDS: KETOROLAC TROMETHAMINE 30 MG/ML VIAL IV. SCH ×2 (18:15→23:19)
[2016-09-20] MEDS: OXYCODONE HCL IR 5 MG TAB (IMMEDIATE RELEASE) PO PRN ×2 (19:32→23:19)
[2016-09-20] MEDS: DOCUSATE SODIUM 100 MG CAP PO SCH (20:38)
[2016-09-20] MEDS: CITALOPRAM 20 MG TAB PO SCH (20:38)
[2016-09-20] MEDS: ASPIRIN 81 MG ECTAB PO SCH (20:38)
[2016-09-20] MEDS: AMITRIPTYLINE HCL 50 MG TAB PO SCH (20:38)
[2016-09-20] MEDS: POTASSIUM CHLORIDE 20 MEQ TABCR PO SCH (20:39)
[2016-09-20] MEDS: SENNA 8.6 MG TAB PO SCH (20:39)
[2016-09-20] MEDS: BuPROPion SR 150 MG TABCR PO SCH (20:39)
[2016-09-20] MEDS: OXYCODONE HCL 10 MG TABCR (OXYCONTIN) PO SCH (20:40)
[2016-09-20] MEDS ORDERED: VANCOMYCIN INJ 1,800 MG in SODIUM CHLORIDE 0.9% 500ML 500 ML IV SCH (23:00)
[2016-09-21] MEDS: SODIUM CHLORIDE 0.9% 1000ML 1,000 ML IV SCH ×2 (01:32→10:17)
[2016-09-21 03:45] VITALS: BP 123/75; PULSE 69; TEMP 36.7; O2SAT 96
[2016-09-21 06:16] LABS: HEMATOCRIT 36.4 % (37-47); MEAN CELL VOLUME 90.3 fL (80-100); MEAN CORPUSCULAR HEMOGLOBIN 30.5 pg (25-34); MEAN CORPUSCULAR HGB CONC 33.8 g/dl (32-36); MEAN PLATELET VOLUME 9.6 fL (7.4-10.4); PLATELET COUNT 226 K/uL (130-400); RED BLOOD COUNT 4.03 M/uL (4.2-5.4); WHITE BLOOD COUNT 12.04 K/uL (4.8-10.8)
[2016-09-21] MEDS: KETOROLAC TROMETHAMINE 30 MG/ML VIAL IV. SCH ×2 (06:18→11:18)
[2016-09-21] MEDS: ACETAMINOPHEN 500 MG TAB PO SCH ×3 (06:19→21:50)
[2016-09-21 06:50] LABS: BUN/CREATININE RATIO 13.9 (10-20); CALCIUM 8.4 mg/dl (8.5-10.1); CREATININE 1.6 mg/dl (0.60-1.20)
--- NOTE | 2016-09-21 07:35 | Orthopedic Progress Note ---
Orthopedic Progress Note Date of Service Sep 21, 2016. Subjective Post OP Day: 1 (removal antibiotic spacer, revision Left TKA) Reports: feeling well, pain controlled w PO medications, Denies: complaints, chest pain, SOB, nausea / vomiting, light headedness, calf pain Objective calves soft nontender, N/V intact, capillary refill less than 2 sec., dressing C /D/I, A&O x3, toes mobile, hemovac drainage (75cc/ 8 hours) Date Time Temp Pulse Resp B/P (MAP) Pulse Ox O2 Delivery O2 Flow Rate FiO2 09/21/16 03:45 36.7 69 16 123/75 (91) 96 Room Air 09/20/16 23:25 Room Air 09/20/16 23:10 36.6 71 16 123/73 (90) 93 Room Air 09/20/16 20:45 98 Room Air 09/20/16 19:02 36.7 67 18 120/78 (92) 97 Nasal Cannula 3.0 09/20/16 18:02 36.9 70 18 115/82 (93) 98 Nasal Cannula 3.0 09/20/16 17:02 36.4 60 16 114/75 (88) 99 Nasal Cannula 3.0 09/20/16 16:30 36.4 65 18 108/71 (83) 100 Nasal Cannula 3.0 09/20/16 16:10 Nasal Cannula 3.0 09/20/16 16:10 100 3.0 09/20/16 16:00 36.4 71 16 113/71 (85) 100 Oxymask 3.0 09/20/16 15:45 74 16 139/74 99 Oxymask 3 09/20/16 15:30 36.3 70 16 137/68 99 Oxymask 3 09/20/16 15:15 68 16 130/67 99 Oxymask 3 09/20/16 15:05 68 16 107/80 99 Oxymask 3 09/20/16 14:55 71 16 128/88 99 Oxymask 5 09/20/16 14:45 72 16 120/73 99 Oxymask 10 09/20/16 14:35 75 16 129/70 99 Oxymask 10 09/20/16 14:28 36.1 79 16 134/69 99 Oxymask 10 09/20/16 10:04 Room Air Laboratory Results 24 Hours: Test 09/20/16 09:50 09/21/16 05:48 White Blood Count 6.41 K/uL Red Blood Count 4.67 M/uL Hemoglobin 14.1 g/dL 12.3 g/dL Hematocrit 41.7 % 36.4 % Mean Corpuscular Volume 89.3 fL Mean Corpuscular Hemoglobin 30.2 pg Mean Corpuscular Hemoglobin Concent 33.8 g/dl Platelet Count 276 K/uL Mean Platelet Volume 9.5 fL Neutrophils (%) (Auto) 60.4 % Lymphocytes (%) (Auto) 29.2 % Monocytes (%) (Auto) 8.3 % Eosinophils (%) (Auto) 1.7 % Basophils (%) (Auto) 0.2 % Neutrophils # (Auto) 3.88 K/uL Lymphocytes # (Auto) 1.87 K/uL Monocytes # (Auto) 0.53 K/uL Eosinophils # (Auto) 0.11 K/uL Basophils # (Auto) 0.01 K/uL Prothromb Time International Ratio 1.0 Prothrombin Time 10.5 SECONDS Assessment & Plan Assessment: Removal of Antibiotic Spacer and Left Total Knee Arthroplasty Revision -PT/OT -will consider d/c to [facility] when stable -dvt proph with maddi/scd/asa PAST MEDICAL HISTORY: 1. Hypertension. 2. Sleep apnea. 3. Anxiety. 4. Acid reflux. 5. Obesity. Discharge Planning DVT Prophylaxis: TEDs, SCDs, ASA
[2016-09-21 07:53] VITALS: BP 110/68; PULSE 80; TEMP 36.7; O2SAT 98
[2016-09-21 08:35] VITALS: O2SAT 98
[2016-09-21] MEDS: FERROUS GLUCONATE 324 MG TAB PO SCH ×3 (08:43→18:24)
[2016-09-21] MEDS: ASPIRIN 81 MG ECTAB PO SCH ×2 (08:43→21:50)
[2016-09-21] MEDS: POTASSIUM CHLORIDE 20 MEQ TABCR PO SCH ×2 (08:44→21:50)
[2016-09-21] MEDS: TRIAMTERENE/HCTZ 37.5/25MG CAP PO SCH (08:44)
[2016-09-21] MEDS: DOCUSATE SODIUM 100 MG CAP PO SCH ×2 (08:44→21:50)
[2016-09-21] MEDS: OXYCODONE HCL 10 MG TABCR (OXYCONTIN) PO SCH ×2 (08:45→21:50)
[2016-09-21] MEDS: PANTOprazole SOD 40 MG TAB PO SCH (08:45)
[2016-09-21] MEDS: MULTIVITAMIN TAB PO SCH (08:45)
[2016-09-21] MEDS ORDERED: PANTOprazole SOD 40 MG TAB PO SCH (09:00)
[2016-09-21] MEDS: OXYCODONE HCL IR 5 MG TAB (IMMEDIATE RELEASE) PO PRN ×2 (10:19→16:00)
[2016-09-21 11:58] VITALS: BP 114/70; PULSE 75; TEMP 36.7; O2SAT 96
[2016-09-21 14:53] VITALS: BP 124/75; PULSE 65; TEMP 36.7; O2SAT 98
--- NOTE | 2016-09-21 17:38 | Discharge Instructions ---
Discharge Instructions Date of Service Sep 21, 2016. Admission Reason for Admission: Left Infected Total Knee Arthroplasty W/Antibiotic Discharge Discharge Diagnosis / Problem: Removal Antibiotic spacer and revision left TKA Discharge Goals Goal(s): Decrease discomfort, Improve function, Increase independence Activity Recommendations Activity Level: Up Ad Lynn Therapies: Physical Therapy, Weight Bearing Status (WBAT left leg) Weightbearing Status: Left weightbearing (as tolerated) . Additional Information Patient informed of condition: Yes Advance Directives: No DNR: No Level of Care: Acute Rehab Communicable Disease: No Prognosis: Stable Rojas Catheter: No Instructions / Follow-Up Instructions / Follow-Up ACTIVITY RECOMMENDATIONS: SELF CARE INSTRUCTIONS AFTER TOTAL KNEE REPLACEMENT A. You may need to continue a physical therapy program after discharge from the hospital. There are several options available to you. Your doctor will assist you in selecting the best one for you. 1. An out-patient facility 2 to 3 times a week for therapy or home therapy. 2. Continue working on all exercises taught to you in the hospital. Your goals should be to increase bending of your knee to 90 degrees and beyond and to fully straighten your knee. B. You may progress at your own pace from walking with a walker or crutches to a cane; then to no assistive devices. C. Make walking a part of your daily routine. Be up as much as comfortable with rest periods throughout the day. Rest with leg elevation is very important. Use the ice wrap frequently for the first 3-4 weeks. D. There are no restrictions on activities. You may ride in a car, shop, participate in instructor of sociology and all social activities. E. Wear the long elastic stockings (HOWARD hose) 20 hours a day for 2 weeks after surgery. They can be removed several times a day for laundering and for a bath. F. You may shower, no tub baths until cleared by your doctor. SPECIAL CARE INSTRUCTIONS: VERY IMPORTANT TO READ AND REVIEW A. There are a few signs you need to watch for after you are home. Call [facility] if you notice any of the followin. Increased severe knee pain. Some pain is expected especially when you exercise. 2. Increased swelling in your leg or knee; pain or swelling of the calf muscle in either lower leg. 3. Any fluid drainage from the incision. 4. Shortness of breath or chest pain. B. Please call [facility] at if you have any concerns or questions about your operation or recovery. The doctor or his nurse will return your call promptly. C. You must take antibiotics before dental work, bladder, bowel or other surgery. Your doctor will provide you with a permanent care to carry describing this precaution. IMPORTANT: * REMEMBER TO TAKE ASPIRIN, 81 MG, TWICE DAILY FOR 4 WEEKS UNLESS OTHERWISE DIRECTED. THIS IS YOUR BLOOD THINNER. * HIGH RISK PATIENTS MAY BE PRESCRIBED A STRONGER BLOOD THINNER. THIS WILL BE PROVIDED AT DISCHARGE. * CALL IF INCREASED PAIN, REDNESS, DRAINAGE OR FEVER GREATER THAT 101. * WEAR HOWARD HOSE 20 HOURS PER DAY FOR 2 WEEKS. * Prevena- This is a large suction dressing covering your incision. This will help pull any excess drainage from the wound and allow your incision to heal properly. You may shower with this if you can keep the unit outside of the shower. If any bleeding or leakage is noted please call your doctor's office. This will remain on your incision for 7 days and then should be removed. This can be done yourself or by the home nursing staff if applicable. The entire unit is disposable once removed. Once removed, keep incision clean and dry. If redness or drainage is noted, please call your surgeon. FOLLOW UP VISIT: If appointment is not already scheduled: Please call [facility] to make a follow-up appointment for 2 weeks after your surgery at . Current Hospital Diet Patient's current hospital diet: Regular Diet Discharge Diet Recommended Diet: Regular Diet Procedures Procedures Performed: Removal of Antibiotic Spacer and Left Total Knee Arthroplasty Revision utilizing a lesion Legion component Garcia nephew size 5 femur with 160 mm stem 16 mm diameter 4 mm offset set at 5:00 5 mm posterior distal and lateral wedges 4 tibia by 15 high flex Zoe with a 13 mm diameter by 164 6 mm offset set at 9:30 patella 30 oval patella Pending Studies Studies pending at discharge: no Physician Orders On Transfer Dressing Changes: Prevena- This is a large suction dressing covering your incision. This will help pull any excess drainage from the wound and allow your incision to heal properly. You may shower with this if you can keep the unit outside of the shower. If any bleeding or leakage is noted please call your doctor's office. This will remain on your incision for 7 days and then should be removed. This can be done yourself or by the home nursing staff if applicable. The entire unit is disposable once removed. Once removed, keep incision clean and dry. If redness or drainage is noted, please call your surgeon. Laboratory Results Hemoglobin A1c Test 07/06/16 15:14 Range/Units Estimated Average Glucose 126 mg/dl Hemoglobin A1c 6.0 H 4.5-5.6 % Medical Emergencies . Who to Call and When: Medical Emergencies: If at any time you feel your situation is an emergency, please call 911 immediately. . Non-Emergent Contact Non-Emergency issues call your: Primary Care Provider . . "Provider Documentation" section prepared by Og Reed. . Core Measure Problem Core Measures: None [place] Drug Monitoring Program Search Results: patient reviewed within database, no issues identified
[2016-09-21] MEDS: SENNA 8.6 MG TAB PO SCH (21:52)
[2016-09-21] MEDS: AMITRIPTYLINE HCL 50 MG TAB PO SCH (22:39)
[2016-09-21] MEDS: CITALOPRAM 20 MG TAB PO SCH (22:39)
[2016-09-21] MEDS: BuPROPion SR 150 MG TABCR PO SCH (22:39)
[2016-09-21 22:56] VITALS: BP 126/83; PULSE 60; TEMP 36.9; O2SAT 95
[2016-09-22] MEDS: ACETAMINOPHEN 500 MG TAB PO SCH ×2 (05:07→14:06)
--- NOTE | 2016-09-22 07:13 | Orthopedic Progress Note ---
Orthopedic Progress Note Date of Service Sep 22, 2016. Subjective Post OP Day: 2 Reports: feeling well, pain controlled w PO medications, Denies: complaints, chest pain, SOB, nausea / vomiting, light headedness, calf pain Objective calves soft nontender, N/V intact, capillary refill less than 2 sec., dressing C /D/I (prevena intact), A&O x3, toes mobile Date Time Temp Pulse Resp B/P (MAP) Pulse Ox O2 Delivery O2 Flow Rate FiO2 09/21/16 23:53 Room Air 09/21/16 22:56 36.9 60 15 126/83 (97) 95 Room Air 09/21/16 16:00 Room Air 09/21/16 14:53 36.7 65 16 124/75 (91) 98 Room Air 09/21/16 11:58 36.7 75 16 114/70 (85) 96 Room Air 09/21/16 08:35 98 Room Air 09/21/16 08:01 Room Air 09/21/16 07:53 36.7 80 16 110/68 (82) 98 Room Air Assessment & Plan Assessment: POD #2 s/p Removal of Antibiotic Spacer and Left Total Knee Arthroplasty Revision -PT/OT -will consider d/c to [facility] when stable, CM working on insurance auth. -dvt proph with maddi/scd/asa PAST MEDICAL HISTORY: 1. Hypertension. 2. Sleep apnea. 3. Anxiety. 4. Acid reflux. 5. Obesity. Discharge Planning Discharge Planning: uncertain DVT Prophylaxis: TEDs, SCDs, ASA
[2016-09-22] MEDS ORDERED: ONDA8TAB6 PO (07:18)
[2016-09-22] MEDS ORDERED: ASPEC81 PO (07:18)
[2016-09-22] MEDS ORDERED: RXC5 PO (07:18)
[2016-09-22] MEDS ORDERED: CLC100 PO (07:18)
[2016-09-22] MEDS ORDERED: OXYSR10 PO (07:18)
[2016-09-22] MEDS ORDERED: ACET-24 PO (07:18)
[2016-09-22 07:34] VITALS: BP 140/82; PULSE 70; TEMP 36.5; O2SAT 96
[2016-09-22 07:45] VITALS: O2SAT 96
[2016-09-22] MEDS: PANTOprazole SOD 40 MG TAB PO SCH (08:29)
[2016-09-22] MEDS: FERROUS GLUCONATE 324 MG TAB PO SCH ×2 (08:29→12:07)
[2016-09-22] MEDS: POTASSIUM CHLORIDE 20 MEQ TABCR PO SCH (08:29)
[2016-09-22] MEDS: MULTIVITAMIN TAB PO SCH (08:29)
[2016-09-22] MEDS: OXYCODONE HCL 10 MG TABCR (OXYCONTIN) PO SCH (08:29)
[2016-09-22 08:30] VITALS: BP 145/82; PULSE 78
[2016-09-22] MEDS: TRIAMTERENE/HCTZ 37.5/25MG CAP PO SCH (08:32)
[2016-09-22] MEDS: ASPIRIN 81 MG ECTAB PO SCH (08:55)
[2016-09-22] MEDS: DOCUSATE SODIUM 100 MG CAP PO SCH (08:55)
[2016-09-22 12:18] VITALS: BP 145/82; PULSE 78; TEMP 36.5; O2SAT 96
[2016-09-22 15:50] VITALS: BP 124/77; PULSE 73; TEMP 36.5; O2SAT 99
--- NOTE | 2016-09-23 13:39 | DISCHARGE SUMMARY ---
DISCHARGE DIAGNOSIS: Status post infected left total knee arthroplasty. SECONDARY DIAGNOSES: Hypertension, sleep apnea, anxiety, gastroesophageal reflux disease, obesity. CONSULTS: None. COMPLICATIONS: None. PROCEDURES: Removal of antibiotic spacer with then left total knee arthroplasty revision by Dr. Yi on 09/20/2016. BRIEF HISTORY: As dictated in history and physical. HOSPITAL SUMMARY: The patient was admitted on the above date and had the above-noted surgery performed which she tolerated well. Intraoperative tissue sent for white cells per high power field were showing less than 5 WBCs and no inflammation. She underwent a successful revision of her total knee arthroplasty and on her first postoperative day, she was feeling well and pain was controlled. She had no complaints. Calves were soft, nontender, neurovascular was intact. Dressings were clean, dry and intact. Toes were mobile. Vital signs were stable. She is afebrile. Hemoglobin was 12.3. Cultures were no growth to date and she was started on physical therapy protocol and continued on DVT prophylaxis and pain management. By her second postoperative day, she was feeling well and pain was controlled. She had no complaints. Calves were soft, nontender, neurovascular was intact. Dressings clean, dry and intact. Toes were mobile. Vital signs were stable. She was afebrile. She was progressing with her physical therapy and plans were for her to go to [facility] for further care. She was remaining stable and she was approved for [facility] and she was discharged to there on 09/22/2016. Cultures continue to remain no growth to date. DISCHARGE INSTRUCTIONS: The patient was discharged to [facility] on 09/22/2016. DIET: Regular. ACTIVITY: Weightbearing as tolerated left lower extremity. Follow TK instruction sheets and special care instructions as noted. Follow up with Dr. Yi in 2 weeks. The patient to call for appointment if one has not been made for you. DISCHARGE MEDICATIONS: Acetaminophen 1000 mg p.o. q. 8 hours, aspirin 81 mg p.o. b.i.d., Colace 100 mg p.o. b.i.d., Zofran 8 mg p.o. q. 8 hours p.r.n. nausea, OxyContin 10 mg p.o. q. 12 hours, oxycodone 5-10 mg p.o. q. 4 hours p.r.n. Resume home meds as listed and stop taking Percocet.
--- NOTE | 2016-09-29 15:34 | OPERATIVE REPORT ---
DATE OF OPERATION: 09/20/2016 NURSING INFORMATICS SPECIALIST: Don Ramos PA-C was necessary for prepping, draping, retraction, and wound closure of deep fascia, subQ and skin and was necessary for the case. I attest to the content of the Intraoperative Record and any orders documented therein. Any exception s are noted below.
== END 2016-09-22 16:40 | DRG 468 ==
LOC: C.ACU 09:23 → C.3E 10:45 → ENRESERV 15:27
PROVIDERS: ADMIT Orthopaedic Surgery; ATTEND Orthopaedic Surgery
PROC: 0SRD0J9 Replacement of Left Knee Joint with Synthetic Substitute, Cemented, Open Approach (ICD-10-PCS; principal; 2016-09-20 11:15)
PROC: 0SPD08Z Removal of Spacer from Left Knee Joint, Open Approach (ICD-10-PCS; principal; 2016-09-20 11:15)
DX: Z47.33 Aftercare following explantation of knee joint prosthesis (principal); I10 Essential (primary) hypertension; G47.30 Sleep apnea, unspecified; F41.9 Anxiety disorder, unspecified; K21.9 Gastro-esophageal reflux disease without esophagitis; E66.9 Obesity, unspecified; Z68.34 Body mass index [BMI] 34.0-34.9, adult; Z79.899 Other long term (current) drug therapy; Z89.421 Acquired absence of other right toe(s); Z91.040 Latex allergy status; Z88.7 Allergy status to serum and vaccine; Z88.2 Allergy status to sulfonamides; Z88.8 Allergy status to other drugs, medicaments and biological substances; Z96.651 Presence of right artificial knee joint